=== PATIENT | female | born 1960 | race Caucasian/White ===

== ENCOUNTER 2016-11-02 17:04 | Emergency (ER) | payer BC ==
[2016-11-02] MEDS ORDERED: Ondansetron 4 MG/2 ML SDV IVPUSH ONE (17:44)
[2016-11-02] MEDS ORDERED: HYDROmorphone 0.5 MG/0.5 ML Syringe IVPUSH ONE ×2 (17:44→20:56)
[2016-11-02] MEDS ORDERED: Sodium Chloride 0.9% 500 ML IV ONE (17:44)
--- NOTE | 2016-11-02 17:51 | EDM.PDOC ---
<Sorin Rodgers Yesenia - Last Filed: 11/02/16 19:21> ED HPI GENERAL MEDICAL PROBLEM - General Chief Complaint: Abdominal Pain Stated Complaint: ABDOMINAL PAIN, VOMITTING Time Seen by Provider: 11/02/16 17:15 Source of Information: Reports: Patient, RN Notes Reviewed - History of Present Illness INITIAL COMMENTS - FREE TEXT/NARRATIVE: 56-year-old female comes in with abdominal pain. This started late this past morning about 6 hours ago. She did have some soup for lunch and after that the discomfort became worse. The pain has been mid upper abdomen with cramping. She's had nausea and vomiting. States she feels better for awhile after vomiting , than the pain starts coming back again, at times very intense. She does have history of appendectomy many years ago at 7 years of age and then she states about 10 years later she developed what sounds like bowel obstruction secondary to adhesions requiring additional surgery at that time. She also has had mild cough for the past week or so. She feels like she has had some chills this afternoon but no definite fever. lower mid abdomen/above pubis Pain Score (Numeric/FACES): 1 - Related Data Allergies Allergy/AdvReac Type Severity Reaction Status Date / Time Sulfa (Sulfonamide Allergy Hives Verified 11/02/16 17:16 Antibiotics) Home Meds: Home Meds Aspirin 81 mg PO DAILY 09/01/15 [History] Levothyroxine 125 mcg PO ACBREAKFAST 09/01/15 [History] Hydrochlorothiazide 25 mg PO DAILY 11/02/16 [History] amLODIPine [Norvasc] 0 mg PO DAILY 11/02/16 [History] Past Medical History HEENT History: Reports: Impaired Vision Cardiovascular History: Reports: Hypertension Endocrine/Metabolic History: Reports: Hypothyroidism - Past Surgical History GI Surgical History: Reports: Appendectomy, Other (See Below) Other GI Surgeries/Procedures: surgical removal of abdominal adhesions Social & Family History - Family History Family Medical History: Noncontributory - Tobacco Use Smoking Status *Q: Never Smoker Second Hand Smoke Exposure: No - Caffeine Use Caffeine Use: Reports: Tea - Recreational Drug Use Recreational Drug Use: No - Living Situation & Occupation Living situation: Reports: , with Spouse Occupation: Employed ED ROS GENERAL - Review of Systems Review Of Systems: See Below Constitutional: Reports: Chills. Denies: Fever HEENT: Denies: Throat Pain Respiratory: Reports: Cough (For about a week, mostly nonproductive). Denies: Pleuritic Chest Pain Cardiovascular: Denies: Chest Pain GI/Abdominal: Reports: Abdominal Pain, Nausea, Vomiting. Denies: Diarrhea ( Midabdomen) : Reports: No Symptoms Musculoskeletal: Denies: Back Pain Skin: Reports: No Symptoms Neurological: Reports: No Symptoms ED EXAM, GI/ABD - Physical Exam Exam: See Below General Appearance: Alert, Mild Distress Eyes: Bilateral: Normal Appearance Throat/Mouth: Normal Inspection, Normal Oropharynx Head: Atraumatic Neck: Supple Respiratory/Chest: No Respiratory Distress, Lungs Clear, Normal Breath Sounds Cardiovascular: Regular Rate, Rhythm GI/Abdominal: Tenderness (Mid abdomen), Rebound (Mild), Other (Large scar visible right lower abdomen and large midline vertical scar is well). No: Guarding Back Exam: No: CVA Tenderness (L), CVA Tenderness (R) Extremities: Normal Inspection, Normal Range of Motion Neurological: Alert, No Motor/Sensory Deficits Skin Exam: Warm, Dry, Normal Color Course - Vital Signs Last Recorded V/S: Last Vital Signs Temp 36.7 C 11/02/16 17:10 Pulse 64 11/02/16 17:10 Resp 18 11/02/16 17:10 BP 130/63 11/02/16 17:10 Pulse Ox 99 11/02/16 17:10 - Orders/Labs/Meds Orders: Active Orders 24 hr Category Date Time Status Peripheral IV Care [RC] . DIRECTED Care 11/02/16 17:36 Active Abdomen 2V AP Flat Upright [CR] Stat Exams 11/02/16 17:45 Taken Chest 1V Frontal [CR] Stat Exams 11/02/16 20:56 Ordered Levofloxacin/Dextrose 5%-Water [Levaquin in D5W 500 MG/ Med 11/02/16 21:15 Active 100 ML] 500 mg Premix Bag 1 bag IV ONETIME Sodium Chloride 0.9% [Saline Flush] Med 11/02/16 17:35 Active 10 ml FLUSH ASDIRECTED PRN NG [Nasogastric Orogastric Tube Insertion] [OM.PC] Oth 11/02/16 20:52 Ordered Routine Peripheral IV Insertion Adult [OM.PC] Stat Oth 11/02/16 17:36 Ordered Medication Orders Levofloxacin/Dextrose 500 mg/ (Premix) 100 mls @ 100 mls/hr IV ONETIME ONE Stop: 11/02/16 22:14 Last Admin: 11/02/16 21:30 Dose: 100 mls/hr Sodium Chloride (Saline Flush) 10 ml FLUSH ASDIRECTED PRN PRN Reason: Keep Vein Open Last Admin: 11/02/16 19:45 Dose: 10 ml Admin: 11/02/16 17:53 Dose: 10 ml Labs: Laboratory Tests 11/02/16 11/02/16 11/02/16 Range/Units 17:38 17:38 18:40 WBC 16.35 H (3.98-10.04) K/mm3 RBC 4.89 (3.98-5.22) M/mm3 Hgb 14.9 (11.2-15.7) gm/L Hct 44.4 (34.1-44.9) % MCV 90.8 (79.4-94.8) fl MCH 30.5 (25.6-32.2) pg MCHC 33.6 (32.2-35.5) g/dl RDW Std Deviation 45.1 (36.4-46.3) fL Plt Count 291 (182-369) K/mm3 MPV 10.7 (9.4-12.3) fl Neut % (Auto) 89.9 H (34.0-71.1) % Lymph % (Auto) 6.2 L (19.3-51.7) % [place] % (Auto) 3.2 L (4.7-12.5) % Eos % (Auto) 0.3 L (0.7-5.8) Baso % (Auto) 0.2 (0.1-1.2) % Neut # (Auto) 14.71 H (1.56-6.13) K/mm3 Lymph # (Auto) 1.01 L (1.18-3.74) K/mm3 [place] # (Auto) 0.52 H (0.24-0.36) K/mm3 Eos # (Auto) 0.05 (0.04-0.36) K/mm3 Baso # (Auto) 0.03 (0.01-0.08) K/mm3 Manual Slide Review Normal smear Sodium 141 (136-145) mEq/L Potassium 3.3 L (3.5-5.1) mEq/L Chloride 100 (98-107) mEq/L Carbon Dioxide 32 (21-32) mEq/L Anion Gap 12.3 (5-15) BUN 17 (7-18) mg/dL Creatinine 0.8 (0.55-1.02) mg/dL Est Cr Clr Drug Dosing 67.00 mL/min Estimated GFR (MDRD) > 60 (>60) mL/min BUN/Creatinine Ratio 21.3 H (14-18) Glucose 141 H (74-106) mg/dL Calcium 10.4 H (8.5-10.1) mg/dL Total Bilirubin 1.0 (0.2-1.0) mg/dL AST 30 (15-37) U/L ALT 114 H (14-59) U/L Alkaline Phosphatase 156 H (46-116) U/L Total Protein 9.1 H (6.4-8.2) g/dl Albumin 4.6 (3.4-5.0) g/dl Globulin 4.5 gm/dL Albumin/Globulin Ratio 1.0 (1-2) Urine Color Yellow (Yellow) Urine Appearance Clear (Clear) Urine pH 8.5 H (5.0-8.0) Ur Specific [place] 1.020 (1.005-1.030) Urine Protein 1+ H (Negative) Urine Glucose (UA) Negative (Negative) Urine Ketones Negative (Negative) Urine Occult Blood Negative (Negative) Urine Nitrite Negative (Negative) Urine Bilirubin Negative (Negative) Urine Urobilinogen 0.2 (0.2-1.0) Ur Leukocyte Esterase Negative (Negative) Urine RBC 0-5 (0-5) /hpf Urine WBC 0-5 (0-5) /hpf Ur Epithelial Cells 0-5 (0-5) /hpf Amorphous Sediment Moderate H (NOT SEEN) /hpf Urine Bacteria Few (FEW) /hpf Urine Mucus Few (FEW) /hpf Meds: Medications Generic Name Dose Route Start Last Admin Trade Name Freq PRN Reason Stop Dose Admin Levofloxacin/Dextrose 500 mg/ 100 mls @ 100 mls/hr 11/02/16 21:15 11/02/16 21 :30 Premix IV 11/02/16 22:14 100 mls/hr ONETIME ONE Administration Sodium Chloride 10 ml 11/02/16 17:35 11/02/16 19:45 Saline Flush FLUSH 10 ml ASDIRECTED PRN Administration Keep Vein Open Discontinued Medications Generic Name Dose Route Start Last Admin Trade Name Hema PRN Reason Stop Dose Admin Diatrizoate Meglum/Diatrizoate Sod 90 ml 11/02/16 19:22 11/02/16 19:45 Gastrografin 37% PO 11/02/16 19:23 90 ml ONETIME ONE Administration Hydromorphone HCl 0.5 mg 11/02/16 17:44 11/02/16 17:54 Dilaudid IVPUSH 11/02/16 17:45 0.5 mg ONETIME ONE Administration Hydromorphone HCl 0.5 mg 11/02/16 20:56 11/02/16 21:01 Dilaudid IVPUSH 11/02/16 20:57 0.5 mg ONETIME ONE Administration Sodium Chloride 500 mls @ 999 mls/hr 11/02/16 17:44 11/02/16 17:52 Normal Saline IV 11/02/16 18:14 999 mls/hr .BOLUS ONE Administration Iopamidol 125 ml 11/02/16 19:22 11/02/16 19:45 Isovue-300 (61%) IVPUSH 11/02/16 19:23 125 ml ONETIME ONE Administration Lidocaine HCl 10 ml 11/02/16 20:39 11/02/16 21:25 Xylocaine 2% Jelly MUCMEM 11/02/16 20:40 10 ml ONETIME ONE Administration Lidocaine HCl Confirm 11/02/16 20:41 11/02/16 20:54 Xylocaine 2% Jelly Administered 11/02/16 20:42 Not Given Dose 10 ml .ROUTE .STK-MED ONE Ondansetron HCl 4 mg 11/02/16 17:44 11/02/16 17:52 Zofran IVPUSH 11/02/16 17:45 4 mg ONETIME ONE Administration - Re-Assessments/Exams Free Text/Narrative Re-Assessment/Exam: 11/02/16 18:48. X-rays of the abdomen do show multiple air-fluid levels up her midabdomen. As noted she does have a history of adhesions and small bowel obstruction about 40 years ago which was about 10 years after surgery for appendicitis at age 7. There is strong concern for at least partial small bowel obstruction developing at this time. Have ordered CT of abdomen and pelvis with oral and IV contrast. Approaching change of shift. Will be transferring care to Dr. Galeas who will soon be coming on for the evening or night nurse supervisor. Departure - Departure Disposition: DC/Tfer to [facility] Clinical Impression: Small bowel obstruction due to adhesions, Leukocytosis - Discharge Information Referrals: Valeri Benavides, DO [Primary Care Provider] - - My Orders Last 24 Hours: My Active Orders 11/02/16 20:52 NG [Nasogastric Orogastric Tube Insertion] [OM.PC] Routine 11/02/16 20:56 Chest 1V Frontal [CR] Stat 11/02/16 21:15 Levofloxacin/Dextrose 5%-Water [Levaquin in D5W 500 MG/100 ML] 500 mg Premix Bag 1 bag IV ONETIME - Assessment/Plan Last 24 Hours: My Active Orders 11/02/16 20:52 NG [Nasogastric Orogastric Tube Insertion] [OM.PC] Routine 11/02/16 20:56 Chest 1V Frontal [CR] Stat 11/02/16 21:15 Levofloxacin/Dextrose 5%-Water [Levaquin in D5W 500 MG/100 ML] 500 mg Premix Bag 1 bag IV ONETIME <Louis Galeas - Last Filed: 11/02/16 21:45> Course - Radiology Interpretation Free Text/Narrative:: CT of the abdomen and pelvis with oral and IV contrast is read by Dr. Fitzgerald as: 1. Fluid-filled and mildly dilated small bowel most likely representing small bowel obstruction within the mid to distal small bowel. Etiology is not seen and findings most likely due to adhesions. 2. Large fibroid within the uterus which was noted on pelvic ultrasound of and appears stable. 3. Small hiatal hernia. Portal chest radiograph appears to demonstrate a NG tube to the stomach via the esophagus. Formal read per the Radiologist pending. - Re-Assessments/Exams Free Text/Narrative Re-Assessment/Exam: 11/02/16 21:[address] Lyla Sharma at 20:53. She reviewed the patient's labs , abdominal films, and CT scan. She is concerned about the patient's elevated white blood cell count, and of the patient's CT images. She is recommending that the patient go to the OR tonight, however, no beds are available at this facility, therefore the patient will require transfer to [place]. The above was discussed with the patient and her . The patient is agreeable to transfer. 11/02/16 21:[address] Maria, surgeon at [facility], at 21:20. He accepts the patient for transfer. Images have been pushed, and we will fax the patient's labs. Departure - Departure Time of Disposition: 21:44 Condition: Serious - My Orders Last 24 Hours: My Active Orders 11/02/16 20:52 NG [Nasogastric Orogastric Tube Insertion] [OM.PC] Routine 11/02/16 20:56 Chest 1V Frontal [CR] Stat 11/02/16 21:15 Levofloxacin/Dextrose 5%-Water [Levaquin in D5W 500 MG/100 ML] 500 mg Premix Bag 1 bag IV ONETIME - Assessment/Plan Last 24 Hours: My Active Orders 11/02/16 20:52 NG [Nasogastric Orogastric Tube Insertion] [OM.PC] Routine 11/02/16 20:56 Chest 1V Frontal [CR] Stat 11/02/16 21:15 Levofloxacin/Dextrose 5%-Water [Levaquin in D5W 500 MG/100 ML] 500 mg Premix Bag 1 bag IV ONETIME
[2016-11-02] MEDS: Sodium Chloride 0.9% 10 ML Syringe FLUSH PRN ×2 (17:53→19:45)
[2016-11-02] MEDS ORDERED: Diatrizoate Meglumine/Diatrizoate Sodium 37% 120 ML Bottle PO ONE (19:22)
[2016-11-02] MEDS ORDERED: Iopamidol 612 MG/ML 150 ML Bottle IVPUSH ONE (19:22)
--- NOTE | 2016-11-02 20:07 | CT ---
CT abdomen and pelvis Technique: Multiple axial sections were obtained from above the dome of the diaphragm inferiorly through the pubic symphysis. Intravenous and oral contrast was given. Incomplete bowel opacification is seen within the distal small bowel. Comparison: No previous abdominal CT. Findings: Visualized lung bases shows nothing acute. Liver shows no focal parenchymal abnormality. Spleen appears within normal limits. Adrenal glands show no nodule. Small hiatal hernia is seen. Kidneys show symmetric contrast enhancement without hydronephrosis or mass. Aorta shows no aneurysmal dilatation. No retroperitoneal adenopathy or mesenteric abnormalities are seen. Fluid-filled and mildly dilated small bowel is identified within the upper and mid abdomen. Decompressed small bowel loops are seen within the pelvis. Findings are felt to represent mild small bowel obstruction occurring within the mid to distal small bowel. Large abnormality is seen within the uterus which is felt compatible with large fibroid measuring about 7.8 cm. Bone window settings shows mild scoliosis within the spine as well as scattered degenerative change. Vacuum phenomena is noted within the L5-S1 disc. Impression: 1. Fluid-filled and mildly dilated small bowel most likely representing small bowel obstruction within the mid to distal small bowel. Etiology is not seen and findings most likely due to adhesions. 2. Large fibroid within the uterus which was noted on pelvic ultrasound of 07/07/12 and appears stable. 3. Small hiatal hernia. Diagnostic code #3
[2016-11-02] MEDS ORDERED: Lidocaine 2% Jelly 10 ML Urojet MUCMEM ONE (20:39)
[2016-11-02] MEDS ORDERED: Lidocaine 2% Jelly 10 ML Urojet ONE (20:41)
[2016-11-02] MEDS ORDERED: Levofloxacin/Dextrose 5%-Water 500 MG in Premix Bag 1 BAG IV ONE (21:15)
[2016-11-02 21:47] VITALS: BP 113/63
--- NOTE | 2016-11-03 07:49 | CR ---
Chest: Portable view of the chest was obtained. Comparison: No previous study. Contrast is seen within the collecting systems of both kidneys from recent CT exam. Heart size and mediastinum are within normal limits. Lungs are clear with no acute infiltrates. Scoliosis is again seen within the spine. Impression: 1. Incidental findings. Nothing acute is identified on portable chest x-ray. Diagnostic code #2
--- NOTE | 2016-11-03 07:50 | CR ---
Abdomen: Supine and upright views of the abdomen were obtained. Comparison: No previous abdominal x-ray. Mild scoliosis is seen. Slightly prominent small bowel gas is noted with several air-fluid levels. Minimal small bowel obstruction is possible. No free air is seen. No abnormal calcification is seen. Soft tissue fullness within the pelvis is seen which correlates to a large uterine fibroid. Impression: 1. Slightly prominent small bowel gas. 2. Soft tissue prominence within the pelvis compatible with uterine fibroid. 3. Other incidental findings. Diagnostic code #3
== END 2016-11-02 22:03 ==
LOC: JD.ED 17:04
DX: K66.0 Peritoneal adhesions (postprocedural) (postinfection) (principal); D72.829 Elevated white blood cell count, unspecified; I10 Essential (primary) hypertension; E03.9 Hypothyroidism, unspecified; Z90.49 Acquired absence of other specified parts of digestive tract; Z88.2 Allergy status to sulfonamides; Z79.82 Long term (current) use of aspirin
CPT/HCPCS: 36415; 71010; 74020; 74177; 80053; 81001; 85025; 96361; 96365; 96375; 96376; 99285; J1170; J1956; J2405; J7040; J7050; Q9963; Q9967; 99284

== ENCOUNTER 2016-12-02 15:01 | Inpatient (IN) | payer BC ==
[2016-12-02] MEDS ORDERED: Sodium Chloride 0.9% 1,000 ML IV ONE (16:18)
[2016-12-02] MEDS ORDERED: Ketorolac 30 MG/ML SDV IVPUSH ONE (16:18)
[2016-12-02] MEDS ORDERED: Ondansetron 4 MG/2 ML SDV IVPUSH ONE (16:18)
--- NOTE | 2016-12-02 16:20 | EDM.PDOC ---
<Rosanne Rodgers Monika - Last Filed: 12/02/16 17:48> ED HPI GENERAL MEDICAL PROBLEM - General Chief Complaint: Abdominal Pain Stated Complaint: BOWEL OBSTRUCTION Time Seen by Provider: 12/02/16 15:29 Source of Information: Reports: Patient History Limitations: Reports: No Limitations - History of Present Illness INITIAL COMMENTS - FREE TEXT/NARRATIVE: The patient is a 56-year-old female with a history of prior bowel obstructions requiring operative intervention who comes in with abdominal pain. She states that it feels like she is getting obstruction. She was hospitalized in October at an outside hospital with an obstruction that resolved without surgical intervention. States that since then she had been doing well until today. She ate lunch and after lunch started having abdominal pain. The pain is crampy. Diffuse. Comes in waves. Lasts units and then resolves. No vomiting but she feels nauseated. So far she's been able to drink liquids and keep them down. Last bowel movement was a small bowel movement this morning. She does feel like she is continuing to pass gas. No fever. No additional complaint. No chest pain or shortness of breath. Middle Abdomen Pain Score (Numeric/FACES): 3 - Related Data Allergies Allergy/AdvReac Type Severity Reaction Status Date / Time Sulfa (Sulfonamide Allergy Hives Verified 11/02/16 17:16 Antibiotics) Home Meds: Home Meds Aspirin 81 mg PO DAILY 09/01/15 [History] Levothyroxine 125 mcg PO ACBREAKFAST 09/01/15 [History] Hydrochlorothiazide 25 mg PO DAILY 11/02/16 [History] amLODIPine [Norvasc] 0 mg PO DAILY 11/02/16 [History] Past Medical History HEENT History: Reports: Impaired Vision Cardiovascular History: Reports: Hypertension Endocrine/Metabolic History: Reports: Hypothyroidism - Past Surgical History GI Surgical History: Reports: Appendectomy, Other (See Below) Other GI Surgeries/Procedures: surgical removal of abdominal adhesions Social & Family History - Family History Family Medical History: Noncontributory - Tobacco Use Smoking Status *Q: Never Smoker Second Hand Smoke Exposure: No - Caffeine Use Caffeine Use: Reports: Tea - Recreational Drug Use Recreational Drug Use: No - Living Situation & Occupation Living situation: Reports: , with Spouse Occupation: Employed ED ROS GENERAL - Review of Systems Review Of Systems: See Below Constitutional: Denies: Fever Respiratory: Denies: Cough Cardiovascular: Denies: Chest Pain GI/Abdominal: Reports: Abdominal Pain, Nausea. Denies: Vomiting : Reports: No Symptoms Musculoskeletal: Reports: No Symptoms ED EXAM, GI/ABD - Physical Exam Exam: See Below Exam Limited By: No Limitations General Appearance: Alert, WD/WN, No Apparent Distress Ears: Normal External Exam Nose: Normal Inspection Throat/Mouth: Normal Inspection, Normal Voice Head: Atraumatic, Normocephalic Neck: Normal Inspection, Supple, Non-Tender, Full Range of Motion Respiratory/Chest: No Respiratory Distress, Lungs Clear, Normal Breath Sounds, Chest Non-Tender Cardiovascular: Normal Peripheral Pulses, Regular Rate, Rhythm, No Murmur GI/Abdominal Exam: Normal Bowel Sounds, Soft, No Distention, Other (diffusely TTP). No: Rebound Neurological: Alert, Oriented Psychiatric: Normal Affect, Normal Mood Skin Exam: Warm, Dry, Intact, Normal Color, No Rash Course - Vital Signs Last Recorded V/S: Last Vital Signs Temp 36.2 C 12/02/16 15:09 Pulse 63 12/02/16 15:09 Resp 18 12/02/16 15:09 BP 114/66 12/02/16 15:09 Pulse Ox 99 12/02/16 15:09 - Orders/Labs/Meds Orders: Active Orders 24 hr Category Date Time Status Abdomen Ltd [US] Stat Exams 12/02/16 17:47 Taken Abdomen Pelvis w Cont [CT] Stat Exams 12/02/16 20:38 Taken CULTURE URINE [RM] Stat Lab 12/02/16 17:00 Received Sodium Chloride 0.9% [Normal Saline] 1,000 ml Med 12/02/16 20:45 Active IV ASDIRECTED Medication Orders Sodium Chloride (Normal Saline) 1,000 mls @ 150 mls/hr IV ASDIRECTED ANDREA Last Admin: 12/02/16 20:48 Dose: 150 mls/hr Labs: Laboratory Tests 12/02/16 12/02/16 12/02/16 Range/Units 17:00 17:00 17:00 WBC 14.36 H (3.98-10.04) K/mm3 RBC 4.83 (3.98-5.22) M/mm3 Hgb 15.0 (11.2-15.7) gm/L Hct 43.9 (34.1-44.9) % MCV 90.9 (79.4-94.8) fl MCH 31.1 (25.6-32.2) pg MCHC 34.2 (32.2-35.5) g/dl RDW Std Deviation 46.1 (36.4-46.3) fL Plt Count 275 (182-369) K/mm3 MPV 10.8 (9.4-12.3) fl Neut % (Auto) 87.6 H (34.0-71.1) % Lymph % (Auto) 7.2 L (19.3-51.7) % [place] % (Auto) 4.2 L (4.7-12.5) % Eos % (Auto) 0.5 L (0.7-5.8) Baso % (Auto) 0.3 (0.1-1.2) % Neut # (Auto) 12.57 H (1.56-6.13) K/mm3 Lymph # (Auto) 1.04 L (1.18-3.74) K/mm3 [place] # (Auto) 0.61 H (0.24-0.36) K/mm3 Eos # (Auto) 0.07 (0.04-0.36) K/mm3 Baso # (Auto) 0.04 (0.01-0.08) K/mm3 Manual Slide Review Normal smear Sodium 140 (136-145) mEq/L Potassium 3.3 L (3.5-5.1) mEq/L Chloride 100 (98-107) mEq/L Carbon Dioxide 31 (21-32) mEq/L Anion Gap 12.3 (5-15) BUN 17 (7-18) mg/dL Creatinine 0.8 (0.55-1.02) mg/dL Est Cr Clr Drug Dosing TNP Estimated GFR (MDRD) > 60 (>60) mL/min BUN/Creatinine Ratio 21.3 H (14-18) Glucose 117 H (74-106) mg/dL Calcium 10.2 H (8.5-10.1) mg/dL Total Bilirubin 1.8 H (0.2-1.0) mg/dL AST 32 (15-37) U/L ALT 80 H (14-59) U/L Alkaline Phosphatase 105 (46-116) U/L Total Protein 9.0 H (6.4-8.2) g/dl Albumin 4.8 (3.4-5.0) g/dl Globulin 4.2 gm/dL Albumin/Globulin Ratio 1.1 (1-2) Lipase 155 (73-393) U/L Urine Color Yellow (Yellow) Urine Appearance Clear (Clear) Urine pH 7.5 (5.0-8.0) Ur Specific [place] 1.020 (1.005-1.030) Urine Protein Trace H (Negative) Urine Glucose (UA) Negative (Negative) Urine Ketones 1+ H (Negative) Urine Occult Blood Trace-intact H (Negative) Urine Nitrite Negative (Negative) Urine Bilirubin Negative (Negative) Urine Urobilinogen 0.2 (0.2-1.0) Ur Leukocyte Esterase 1+ H (Negative) Urine RBC 0-5 (0-5) /hpf Urine WBC 5-10 H (0-5) /hpf Ur Epithelial Cells 5-10 H (0-5) /hpf Urine Bacteria Moderate H (FEW) /hpf Urine Mucus Few (FEW) /hpf Meds: Medications Generic Name Dose Route Start Last Admin Trade Name Freq PRN Reason Stop Dose Admin Sodium Chloride 1,000 mls @ 150 mls/hr 12/02/16 20:45 12/02/16 20:48 Normal Saline IV 150 mls/hr ASDIRECTED ANDREA Administration Discontinued Medications Generic Name Dose Route Start Last Admin Trade Name Freq PRN Reason Stop Dose Admin Diatrizoate Meglum/Diatrizoate Sod 90 ml 12/02/16 22:44 12/02/16 22:45 Gastrografin 37% PO 12/02/16 22:45 90 ml ONETIME ONE Administration Sodium Chloride 1,000 mls @ 1,000 mls/hr 12/02/16 16:18 12/02/16 16:59 Normal Saline IV 12/02/16 17:17 1,000 mls/hr ONETIME ONE Administration Iopamidol 150 ml 12/02/16 22:44 12/02/16 22:45 Isovue-300 (61%) IVPUSH 12/02/16 22:45 120 ml ONETIME ONE Administration Ketorolac Tromethamine 30 mg 12/02/16 16:18 12/02/16 17:01 Toradol IVPUSH 12/02/16 16:19 30 mg ONETIME ONE Administration Ondansetron HCl 4 mg 12/02/16 16:18 12/02/16 17:00 Zofran IVPUSH 12/02/16 16:19 4 mg ONETIME ONE Administration - Re-Assessments/Exams Free Text/Narrative Re-Assessment/Exam: 12/02/16 17:48 Lab significant for elevated white count with left shift and mildly elevated bilirubin. Her abdominal series shows no evidence of acute obstruction. I suspect that this may actually be biliary colic with possible cholecystitis. Ultrasound ordered. Departure - Departure Disposition: Home, Self-Care 01 Clinical Impression: Ileus - Discharge Information - My Orders Last 24 Hours: My Active Orders 12/02/16 17:00 CULTURE URINE [RM] Stat 12/02/16 20:38 Abdomen Pelvis w Cont [CT] Stat 12/02/16 20:45 Sodium Chloride 0.9% [Normal Saline] 1,000 ml IV ASDIRECTED - Assessment/Plan Last 24 Hours: My Active Orders 12/02/16 17:00 CULTURE URINE [RM] Stat 12/02/16 20:38 Abdomen Pelvis w Cont [CT] Stat 12/02/16 20:45 Sodium Chloride 0.9% [Normal Saline] 1,000 ml IV ASDIRECTED <Lousi Galeas - Last Filed: 12/03/16 00:10> Course - Re-Assessments/Exams Free Text/Narrative Re-Assessment/Exam: 12/02/16 20:[address] Anjelica Rodgers, and care of the patient assumed. Ultrasound of the right upper quadrant is read by [facility] as: 1: Diffuse fatty infiltration of the liver. 2. Normal gallbladder. I will order a CT scan of the abdomen and pelvis to further evaluate the cause of the patient's pain. The patient's urinalysis appears to be consistent with contamination, however, I will order a urine culture. 12/02/16 23:54 CT of the abdomen and pelvis with IV contrast is read by [facility] as: 1. Enlarged uterus containing a uterine fibroid about 6.8 cm in diameter. 2. Gastrectasis and possible gastroparesis. 3. Nonspecific fluid in the small bowel and colon perhaps due to generalized ileus. 12/03/16 00:08 Test results discussed with the patient and her . Today's workup indicates that the patient is suffering from generalized ileus, although no small bowel obstruction, specifically, was found. I am reluctant to discharge the patient home. I would prefer to have her admitted and try pro-motility agents, such as Reglan and/or erythromycin. The patient is agreeable to being admitted. Case discussed with Dr. Rolle at 00:05. He agrees to the admission. Departure - Departure Time of Disposition: 00:09 Condition: Fair - My Orders Last 24 Hours: My Active Orders 12/02/16 17:00 CULTURE URINE [RM] Stat 12/02/16 20:38 Abdomen Pelvis w Cont [CT] Stat 12/02/16 20:45 Sodium Chloride 0.9% [Normal Saline] 1,000 ml IV ASDIRECTED - Assessment/Plan Last 24 Hours: My Active Orders 12/02/16 17:00 CULTURE URINE [RM] Stat 12/02/16 20:38 Abdomen Pelvis w Cont [CT] Stat 12/02/16 20:45 Sodium Chloride 0.9% [Normal Saline] 1,000 ml IV ASDIRECTED
--- NOTE | 2016-12-02 17:15 | CR ---
Abdominal series: Supine and upright views of the abdomen were obtained as well as frontal view of the chest. Comparison: Previous abdominal x-ray of 11/02/16 and chest x-ray of 11/02/16. Heart size and mediastinum are within normal limits. Lungs are clear. Scoliosis is present within the thoracic and lumbar spine. Bowel gas pattern appears within normal limits. No free air is seen. Several air-fluid levels are seen on the upright view felt to be within normal limits. Impression: 1. Incidental findings. Diagnostic code #2
[2016-12-02] MEDS: Sodium Chloride 0.9% 1,000 ML IV SCH (20:48)
[2016-12-02] MEDS ORDERED: Iopamidol 612 MG/ML 150 ML Bottle IVPUSH ONE (22:44)
[2016-12-02] MEDS ORDERED: Diatrizoate Meglumine/Diatrizoate Sodium 37% 120 ML Bottle PO ONE (22:44)
[2016-12-03] MEDS ORDERED: Metoprolol Tartrate 5 MG/5 ML SDV IVPUSH PRN (00:24)
[2016-12-03] MEDS ORDERED: hydrALAZINE 20 MG/ML SDV IVPUSH PRN (00:24)
[2016-12-03] MEDS ORDERED: Acetaminophen/HYDROcodone 325-5 MG Tab PO PRN (00:25)
[2016-12-03] MEDS ORDERED: Ondansetron 4 MG/2 ML SDV IV PRN (00:25)
[2016-12-03] MEDS ORDERED: Temazepam 15 MG Cap PO PRN (00:25)
[2016-12-03] MEDS ORDERED: LORazepam 2 MG/ML MDV IV PRN (00:25)
[2016-12-03] MEDS ORDERED: Acetaminophen 325 MG Tab PO PRN (00:25)
[2016-12-03] MEDS ORDERED: Promethazine 12.5 MG in Sodium Chloride 0.9% 50 ML IV PRN (00:25)
[2016-12-03] MEDS ORDERED: HYDROmorphone 1 MG/ML Syringe IVPUSH PRN (00:25)
[2016-12-03] MEDS ORDERED: Albuterol/Ipratropium 3.0-0.5 MG/3 ML Neb Soln NEB PRN (00:25)
--- NOTE | 2016-12-03 00:30 | PCM.HP ---
H&P History of Present Illness - General Date of Service: 12/03/16 Admit Problem/Dx: Abdominal Pain Source of Information: Patient, Family, Old Records, Provider, RN Notes Reviewed , Significant Other History Limitations: Reports: No Limitations - History of Present Illness Initial Comments - Free Text/Narative: This is a 56 year old white female with past medical history of hypothyroidism and hypertension who comes in the emergency department with complaints of abdominal pain. Her symptom started after she ate lunch. She describes her pain as crampy, diffuse and comes in waves. Patient feels nauseated but without emesis. Her last bowel movement was this morning. She denies any signs of systemic infections. Patient carries a history of bowel instruction requiring operative intervention. She has had removal of some of her abdominal adhesions as well as history of appendectomy. Last time she this episode was in October and she improved medically without surgical intervention. Her initial workup in emergency department shows a CBC remarkable for WBC of 14.36, and neutrophils of 87.6%. Her chemistry is remarkable for potassium of 3.3, glucose of 117, calcium of 10.2, total bilirubin of 1.8, ALT of 80, and total protein of 9. Her UA is unimpressive for urinary tract infection. Abdominal x-ray report reads bowel gas pattern appears within normal limits. No free air seen. Abdominal ultrasound report reads fatty infiltration within the liver. No additional abnormalities identified in the right upper quadrant. Abdominal/Pelvis CT scan report reads fluid within the colon. Slightly dilated stomach containing contrast: Incidental versus gastroparesis. Nothing acute appreciated. Patient was to be admitted for abdominal pain felt to be related to above findings. Middle Abdomen Pain Score (Numeric/FACES): 3 - Related Data Allergies/Adverse Reactions: Allergies Allergy/AdvReac Type Severity Reaction Status Date / Time Sulfa (Sulfonamide Allergy Hives Verified 12/03/16 01:25 Antibiotics) Home Medications: Home Meds Aspirin 81 mg PO DAILY 09/01/15 [History] Levothyroxine 125 mcg PO ACBREAKFAST 09/01/15 [History] Hydrochlorothiazide 25 mg PO DAILY 11/02/16 [History] amLODIPine [Norvasc] 0 mg PO DAILY 11/02/16 [History] Past Medical History HEENT History: Reports: Impaired Vision Cardiovascular History: Reports: Hypertension Endocrine/Metabolic History: Reports: Hypothyroidism - Past Surgical History GI Surgical History: Reports: Appendectomy, Other (See Below) Other GI Surgeries/Procedures: surgical removal of abdominal adhesions Social & Family History - Family History Family Medical History: Noncontributory - Tobacco Use Smoking Status *Q: Never Smoker Second Hand Smoke Exposure: No - Caffeine Use Caffeine Use: Reports: Tea - Recreational Drug Use Recreational Drug Use: No - Living Situation & Occupation Living situation: Reports: , with Spouse Occupation: Employed H&P Review of Systems - Review of Systems: Review Of Systems: See Below General: Reports: Fever. Denies: Chills, Malaise, Weakness, Fatigue, Decreased Appetite HEENT: Reports: No Symptoms Pulmonary: Reports: Cough. Denies: Shortness of Breath Cardiovascular: Denies: Chest Pain, Palpitations, Dyspnea on Exertion Gastrointestinal: Reports: Abdominal Pain, Flatus, Nausea. Denies: Constipation , Decreased Appetite, Difficulty Swallowing, Distension, Hematemesis, Hematochezia, Melena, Vomiting Genitourinary: Reports: No Symptoms Musculoskeletal: Reports: No Symptoms Skin: Denies: Cyanosis, Jaundice, Rash, Erythema Psychiatric: Denies: Depression, Anxiety, Hallucinations, Suicidal Ideation Neurological: Denies: Confusion, Difficulty Walking, Weakness, Gait Disturbance Hematologic/Lymphatic: Reports: No Symptoms Immunologic: Reports: No Symptoms Exam - Exam Exam: See Below - Vital Signs Vital Signs: Last Vital Signs Temp 36.2 C 12/02/16 15:09 Pulse 63 12/02/16 15:09 Resp 18 12/02/16 15:09 BP 114/66 12/02/16 15:09 Pulse Ox 99 12/02/16 15:09 Weight: 65.771 kg - Exam General: Alert, Oriented, Cooperative, Mild Distress HEENT: Conjunctiva Clear, EACs Clear, EOMI, Hearing Intact, Mucosa Moist & [place] , Nares Patent, Normal Nasal Septum, Posterior Pharynx Clear, Pupils Equal, Pupils Reactive Neck: Supple, Trachea Midline, +2 Carotid Pulse wo Bruit Lungs: Clear to Auscultation, Normal Respiratory Effort Cardiovascular: Regular Rate, Regular Rhythm GI/Abdominal Exam: Normal Bowel Sounds, Soft, Tender (mid abdomen), Other (Scars : Mid-abdomen and Diagonal scar on the lower right ). No: No Organomegaly, No Distention, No Abnormal Bruit, No Mass (Female) Exam: Normal External Exam, Deferred Rectal (Female) Exam: Deferred Back Exam: Normal Inspection, Decreased Range of Motion Extremities: Normal Inspection, Normal Range of Motion, Non-Tender, No Pedal Edema, Normal Capillary Refill Skin: Warm, Dry, Intact Neuro Extensive - Mental Status: Oriented x3, Normal Cognition, Memory Intact Neuro Extensive - Motor, Sensory, Reflexes: CN II-XII Intact, Normal Gait Psychiatric: Alert, Normal Affect, Normal Mood - Patient Data Result Diagrams: 12/03/16 06:15 12/03/16 06:15 *Q Meaningful Use (ADM) - VTE *Q VTE Criteria *Q: - Stroke *Q Stroke Criteria *Q: - AMI *Q AMI Criteria *Q: Problem List Initiated/Reviewed/Updated: Yes Orders Last 24hrs: Active Orders 24 hr Category Date Time Status Antiembolic Devices [RC] PER UNIT ROUTINE Care 12/03/16 00:26 Ordered Height and Weight [RC] DAILY Care 12/03/16 00:25 Ordered Intake and Output [RC] QSHIFT Care 12/03/16 00:25 Ordered Oxygen Therapy [RC] PRN Care 12/03/16 00:25 Ordered RT Aerosol Therapy [RC] ASDIRECTED Care 12/03/16 00:26 Ordered Up With Assistance [RC] ASDIRECTED Care 12/03/16 00:25 Ordered Up ad Maral [RC] ASDIRECTED Care 12/03/16 00:25 Ordered VTE/DVT Education [RC] PER UNIT ROUTINE Care 12/03/16 00:25 Ordered Vital Signs [RC] Q4H Care 12/03/16 00:25 Ordered Consult to Case Management [CONS] Routine Cons 12/03/16 00:27 Ordered Consult to Fixed Income Director [CONS] Routine Cons 12/03/16 00:27 Ordered OT Evaluation and Treatment [CONS] Routine Cons 12/03/16 00:27 Ordered PT Evaluation and Treatment [CONS] Routine Cons 12/03/16 00:27 Ordered Nothing per Oral Now Diet [DIET] Diet 12/03/16 Breakfast Ordered Abdomen 1V Flat [CR] Routine Exams 12/03/16 09:00 Ordered BASIC METABOLIC PANEL,BMP [CHEM] AM Lab 12/03/16 05:11 Ordered BASIC METABOLIC PANEL,BMP [CHEM] AM Lab 12/04/16 05:11 Ordered BASIC METABOLIC PANEL,BMP [CHEM] AM Lab 12/05/16 05:11 Ordered C-REACTIVE PROTEIN [CHEM] AM Lab 12/03/16 05:11 Ordered C-REACTIVE PROTEIN [CHEM] AM Lab 12/04/16 05:11 Ordered C-REACTIVE PROTEIN [CHEM] AM Lab 12/05/16 05:11 Ordered CBC WITH AUTO DIFF [HEME] AM Lab 12/03/16 05:11 Ordered CBC WITH AUTO DIFF [HEME] AM Lab 12/04/16 05:11 Ordered CBC WITH AUTO DIFF [HEME] AM Lab 12/05/16 05:11 Ordered MAGNESIUM [CHEM] AM Lab 12/03/16 05:11 Ordered MAGNESIUM [CHEM] AM Lab 12/04/16 05:11 Ordered MAGNESIUM [CHEM] AM Lab 12/05/16 05:11 Ordered Acetaminophen [Tylenol] Med 12/03/16 00:25 Ordered 650 mg PO Q4H PRN Acetaminophen/HYDROcodone [[place] 325-5 MG] Med 12/03/16 00:25 Ordered 1 tab PO Q4H PRN Albuterol/Ipratropium [DuoNeb 3.0-0.5 MG/3 ML] Med 12/03/16 00:25 Ordered 3 ml NEB Q4H PRN HYDROmorphone [Dilaudid] Med 12/03/16 00:25 Ordered 1 mg IVPUSH Q3H PRN Hydrochlorothiazide Med 12/03/16 09:00 Ordered 25 mg PO DAILY LORazepam [Ativan] Med 12/03/16 00:25 Ordered 1 mg IV Q6H PRN Levothyroxine Med 12/03/16 06:00 Ordered 125 mcg PO ACBREAKFAST Magnesium Rep Pharmacy to Dose [Pharmacy to Dose - Med 12/03/16 00:30 Ordered Magnesium Replacement] 1 dose .XX ASDIRECTED Metoclopramide [Reglan] Med 12/03/16 00:30 Ordered 10 mg IVPUSH Q6H Metoprolol Tartrate [Lopressor] Med 12/03/16 00:24 Ordered 5 mg IVPUSH Q4H PRN Ondansetron [Zofran] Med 12/03/16 00:25 Ordered 4 mg IV Q6H PRN Potassium Rep Pharmacy to Dose [Pharmacy to Dose - Med 12/03/16 00:30 Ordered Potassium Replacement] 1 dose .XX ASDIRECTED Promethazine [Phenergan] 12.5 mg Med 12/03/16 00:25 Ordered Sodium Chloride 0.9% [Normal Saline] 50 ml IV Q6H Temazepam [Restoril] Med 12/03/16 00:25 Ordered 15 mg PO BEDTIME PRN amLODIPine [Norvasc] Med 12/03/16 09:00 Ordered 5 mg PO DAILY hydrALAZINE [Apresoline] Med 12/03/16 00:24 Ordered 20 mg IVPUSH Q4H PRN Sequential Compression Device [OM.PC] Per Unit Routine Oth 12/03/16 00:25 Ordered Resuscitation Status Routine Resus Stat 12/03/16 00:25 Ordered Medication Orders Sodium Chloride (Normal Saline) 1,000 mls @ 150 mls/hr IV ASDIRECTED ANDREA Last Admin: 12/02/16 20:48 Dose: 150 mls/hr Assessment/Plan Comment:: Assessment/Plan: Acute: Abdominal Pain - Likely 2/2 Below - Supportive Care - Pain Management Generalized Ileus - CT scan: Nonspecific fluid in the small bowel and colon perhaps due to generalized ileus. - Supportive Care - IV fluids - Prokinetic Agent - Ambulated as tolerated - Repeat AXR in am Gastrectasis and Possible Gastroparesis - CT scan findings - Prokinetic Agent Diffuse Fatty Liver Disease - U/S Finding - Low chol diet - Dietary consult Uterine Fibroids - CT scan V-rad: Enlarged uterus containing a uterine fibroid about 6.8 cm in diameter - May need Benzene Operator eval after discharge Chronic: HTN Hypothyrodisim Plan: Admit to Med-Surg NPO except ice chips/sips of water Routine AM Labs Resume Home Medications Consider GS consult for worsening of symptoms PT/OT consult if needed SW/CM for d/c planning Code status: 1
[2016-12-03] MEDS ORDERED: Metoclopramide 10 MG/2 ML SDV IVPUSH ONE (00:45)
[2016-12-03] MEDS: Potassium Chloride 20 MEQ Tab.ER PO SCH ×2 (01:33→05:46)
[2016-12-03] MEDS: Sodium Chloride 0.9% 1,000 ML IV SCH ×3 (03:59→17:50)
[2016-12-03] MEDS: Metoclopramide 10 MG/2 ML SDV IVPUSH SCH ×3 (05:46→17:04)
[2016-12-03] MEDS ORDERED: Levothyroxine 125 MCG Tab PO SCH (06:00)
--- NOTE | 2016-12-03 07:17 | US ---
Limited abdominal ultrasound: Multiple real-time images were obtained of the right upper abdomen. Comparison: Previous abdominal ultrasound of 11/10/11. Liver is minimally echogenic in relation to the kidney suspicious for fatty infiltration. No focal abnormality is identified within the liver. Gallbladder shows no gallstones. No gallbladder wall thickening or biliary duct dilatation is seen. Right kidney shows no hydronephrosis or mass. Pancreas is within normal limits. Inferior vena cava and portal vein are patent. Impression: 1. Fatty infiltration within the liver. 2. No additional abnormality is identified on right upper quadrant abdominal ultrasound. Diagnostic code #2 I agree with preliminary report issued by [facility] ([facility] report finalized on 12/02/16, 90 1 PM Central Time)
--- NOTE | 2016-12-03 07:44 | CT ---
CT abdomen and pelvis Technique: Multiple axial sections were obtained from above the dome of the diaphragm inferiorly through the pubic symphysis. Intravenous and oral contrast was utilized. Delayed images were also obtained through the pelvis. Comparison: Previous abdominal ultrasound performed earlier on the same date and previous CT exam of 11/02/16. Findings: Visualized lung bases show nothing acute. Liver shows mild fatty infiltration. No focal abnormality seen within the liver. Spleen appears within normal limits. Slightly dilated stomach is seen. Adrenal glands show no nodule. Pancreas is within normal limits. Kidneys show symmetric contrast enhancement. Slightly prominent collecting system noted of the left kidney which is seen on prior CT exam and appears stable. Aorta shows no aneurysmal dilatation. No retroperitoneal adenopathy or mesenteric abnormalities are seen. Large uterine fibroid is seen measuring approximately 7.7 cm in size which is stable from prior exam. No additional pelvic abnormality is appreciated. Fluid is seen within portions of the colon. Minimal free fluid seen within the pelvis which is felt to be physiologic. No inflammatory change is seen. Several loops of distal small bowel are mildly prominent in size possibly related to the hypertonic effect of contrast versus change from mild gastroenteritis. Delayed images show contrast within the distal ureters and bladder. Bone window settings were reviewed showing degenerative change within the spine most prominent at L5-S1 with disc space narrowing and vacuum phenomena. Mild scoliosis is seen. Impression: 1. Fluid within the colon. Slightly prominent size of distal small bowel. Please correlate if patient has any symptoms of gastroenteritis with diarrhea. Slightly dilated stomach containing contrast. This is nonspecific and may be incidental versus an element of gastroparesis. 2. Other incidental findings as noted above which are stable from prior CT exam. 3. Nothing acute is appreciated. Diagnostic code #3
[2016-12-03] MEDS: amLODIPine 5 MG Tab PO SCH (08:59)
[2016-12-03] MEDS: Hydrochlorothiazide 25 MG Tab PO SCH (09:00)
--- NOTE | 2016-12-03 11:01 | CR ---
Abdomen: Supine view of the abdomen was obtained. Comparison: Previous abdominal CT exam of 12/02/16 and abdominal x-ray of 12/02/16. Contrast noted within the colon from recent CT study. Scoliosis and mild degenerative change is seen within the spine. No abnormal calcifications are seen. No bowel dilatation is seen. Impression: 1. Incidental findings. Diagnostic code #1
--- NOTE | 2016-12-03 11:35 | PCM.PN ---
- General Info Date of Service: 12/03/16 Functional Status: Reports: Pain Controlled, Ambulating, Urinating - Review of Systems General: Reports: No Symptoms HEENT: Reports: No Symptoms Pulmonary: Reports: No Symptoms Cardiovascular: Reports: No Symptoms Gastrointestinal: Reports: No Symptoms Genitourinary: Reports: No Symptoms Musculoskeletal: Reports: No Symptoms Skin: Reports: No Symptoms Neurological: Reports: No Symptoms Psychiatric: Reports: No Symptoms - Patient Data Vitals - most recent: Last Vital Signs Temp 36.4 C 12/03/16 08:50 Pulse 69 12/03/16 08:50 Resp 14 12/03/16 08:50 BP 120/62 12/03/16 08:59 Pulse Ox 94 L 12/03/16 08:50 Weight - most recent: 65.771 kg I&O - last 24 hours: Intake & Output 12/02/16 12/03/16 12/03/16 22:59 06:59 14:59 Intake Total 900 Output Total 550 Balance 350 Lab Results last 24 hrs: Laboratory Results - last 24 hr 12/03/16 12/03/16 Range/Units 06:15 06:15 WBC 8.92 (3.98-10.04) K/mm3 RBC 3.96 L (3.98-5.22) M/mm3 Hgb 12.1 (11.2-15.7) gm/L Hct 36.4 (34.1-44.9) % MCV 91.9 (79.4-94.8) fl MCH 30.6 (25.6-32.2) pg MCHC 33.2 (32.2-35.5) g/dl RDW Std Deviation 46.4 H (36.4-46.3) fL Plt Count 237 (182-369) K/mm3 MPV 11.0 (9.4-12.3) fl Neut % (Auto) 78.2 H (34.0-71.1) % Lymph % (Auto) 12.1 L (19.3-51.7) % George % (Auto) 7.8 (4.7-12.5) % Eos % (Auto) 1.8 (0.7-5.8) Baso % (Auto) 0.1 (0.1-1.2) % Neut # (Auto) 6.97 H (1.56-6.13) K/mm3 Lymph # (Auto) 1.08 L (1.18-3.74) K/mm3 George # (Auto) 0.70 H (0.24-0.36) K/mm3 Eos # (Auto) 0.16 (0.04-0.36) K/mm3 Baso # (Auto) 0.01 (0.01-0.08) K/mm3 Sodium 142 (136-145) mEq/L Potassium 3.6 (3.5-5.1) mEq/L Chloride 109 H (98-107) mEq/L Carbon Dioxide 27 (21-32) mEq/L Anion Gap 9.6 (5-15) BUN 12 (7-18) mg/dL Creatinine 0.7 (0.55-1.02) mg/dL Est Cr Clr Drug Dosing 76.57 mL/min Estimated GFR (MDRD) > 60 (>60) mL/min BUN/Creatinine Ratio 17.1 (14-18) Glucose 104 (74-106) mg/dL Calcium 8.4 L (8.5-10.1) mg/dL Magnesium 2.0 (1.8-2.4) mg/dl C-Reactive Protein 0.8 (<1.0) mg/dL Med Orders - Current: Current Medications Acetaminophen (Tylenol) 650 mg PO Q4H PRN PRN Reason: Pain (Mild 1-3)/fever Hydrocodone Bitart/Acetaminophen ([place] 325-5 Mg) 1 tab PO Q4H PRN PRN Reason: Pain (moderate 4-6) Albuterol/Ipratropium (Duoneb 3.0-0.5 Mg/3 Ml) 3 ml NEB Q4H PRN PRN Reason: Shortness Of Breath/wheezing Amlodipine Besylate (Norvasc) 5 mg PO DAILY [facility] Last Admin: 12/03/16 08:59 Dose: 5 mg Hydralazine HCl (Apresoline) 20 mg IVPUSH Q4H PRN PRN Reason: Hypertension Hydrochlorothiazide (Hydrochlorothiazide) 25 mg PO DAILY [facility] Last Admin: 12/03/16 09:00 Dose: 25 mg Hydromorphone HCl (Dilaudid) 1 mg IVPUSH Q3H PRN PRN Reason: Other Sodium Chloride (Normal Saline) 1,000 mls @ 150 mls/hr IV ASDIRECTED [facility] Last Admin: 12/03/16 10:45 Dose: 150 mls/hr Promethazine HCl 12.5 mg/ (Sodium Chloride) 50.5 mls @ 100 mls/hr IV Q6H PRN PRN Reason: Nausea/Vomiting Levothyroxine Sodium (Synthroid) 50 mcg PO ACBREAKFAST ANDREA Lorazepam (Ativan) 1 mg IV Q6H PRN PRN Reason: Anxiety Magnesium Sulfate (Pharmacy To Dose - Magnesium Replacement) 0 dose .XX ASDIRECTED PRN PRN Reason: RX TO MONITOR MAG LEVELS Metoclopramide HCl (Reglan) 10 mg IVPUSH Q6H [facility] Last Admin: 12/03/16 11:21 Dose: 10 mg Metoprolol Tartrate (Lopressor) 5 mg IVPUSH Q4H PRN PRN Reason: Tachycardia Ondansetron HCl (Zofran) 4 mg IV Q6H PRN PRN Reason: Nausea/Vomiting Potassium Chloride (Pharmacy To Dose - Potassium Replacement) 0 dose .XX ASDIRECTED PRN PRN Reason: RX TO MONITOR K LEVELS Temazepam (Restoril) 15 mg PO BEDTIME PRN PRN Reason: Sleep Discontinued Medications Diatrizoate Meglum/Diatrizoate Sod (Gastrografin 37%) 90 ml PO ONETIME ONE Stop: 12/02/16 22:45 Last Admin: 12/02/16 22:45 Dose: 90 ml Sodium Chloride (Normal Saline) 1,000 mls @ 1,000 mls/hr IV ONETIME ONE Stop: 12/02/16 17:17 Last Admin: 12/02/16 16:59 Dose: 1,000 mls/hr Iopamidol (Isovue-300 (61%)) 150 ml IVPUSH ONETIME ONE Stop: 12/02/16 22:45 Last Admin: 12/02/16 22:45 Dose: 120 ml Ketorolac Tromethamine (Toradol) 30 mg IVPUSH ONETIME ONE Stop: 12/02/16 16:19 Last Admin: 12/02/16 17:01 Dose: 30 mg Levothyroxine Sodium (Levothyroxine) 125 mcg PO ACBREAKFAST [facility] Last Admin: 12/03/16 05:46 Dose: 125 mcg Metoclopramide HCl (Reglan) 10 mg IVPUSH ONETIME ONE Stop: 12/03/16 00:46 Last Admin: 12/03/16 01:33 Dose: 10 mg Ondansetron HCl (Zofran) 4 mg IVPUSH ONETIME ONE Stop: 12/02/16 16:19 Last Admin: 12/02/16 17:00 Dose: 4 mg Potassium Chloride (Klor-Con M20) 20 meq PO Q3H ANDREA Stop: 12/03/16 04:01 Last Admin: 12/03/16 05:46 Dose: 20 meq - Exam Quality Assessment: DVT prophylaxis General: alert, oriented, cooperative, no acute distress HEENT: Pupils equal, Pupils reactive, EOMI, Mucous membr. moist/pink Neck: supple, trachea midline, no JVD Lungs: Normal Respiratory Effort Cardiovascular: Regular Rate, Regular Rhythm GI/Abdominal Exam: Normal Bowel Sounds, Soft, Non-Tender, No Organomegaly, No Distention (Female) Exam: Deferred Back Exam: Normal Inspection Extremities: Normal Inspection Skin: warm, dry Neurological: no new focal deficit, normal gait, normal speech Psy/Mental Status: alert, normal affect, normal mood - Problem List & Annotations (1) Gastroparesis SNOMED Code(s): 079940050 Code(s): K31.84 - GASTROPARESIS Status: Acute Current Visit: Yes (2) Ileus SNOMED Code(s): 217317509 Code(s): K56.7 - ILEUS, UNSPECIFIED Status: Acute Current Visit: Yes (3) Leukocytosis SNOMED Code(s): 953190950, 331050055 Code(s): D72.829 - ELEVATED WHITE BLOOD CELL COUNT, UNSPECIFIED Status: Acute Current Visit: No (4) Uterine fibroid SNOMED Code(s): 32878461 Code(s): D25.9 - LEIOMYOMA OF UTERUS, UNSPECIFIED Status: Acute Current Visit: Yes - Problem List Review Problem List Initiated/Reviewed/Updated: Yes - My Orders Last 24 Hours: My Active Orders 12/03/16 Lunch Clear Liquid Diet [DIET] - Plan Plan:: Assessment/Plan: Acute: Abdominal Pain - Likely 2/2 Below - Supportive Care - Pain Management Generalized Ileus - CT scan: Nonspecific fluid in the small bowel and colon perhaps due to generalized ileus. - Supportive Care - IV fluids - Prokinetic Agent - Ambulated as tolerated - Repeat AXR in am Gastrectasis cf Gastroparesis - CT scan findings - Prokinetic Agent Diffuse Fatty Liver Disease - U/S Finding - Low chol diet - Dietary consult Uterine Fibroids - CT scan V-rad: Enlarged uterus containing a uterine fibroid about 6.8 cm in diameter - May need Coat Feller eval after discharge Chronic: HTN Hypothyrodisim Plan: Med-Surg AXR, unremarkable; will start clear liquids Routine AM Labs Resume Home Medications Consider GS consult for worsening of symptoms PT/OT consult if needed SW/CM for d/c planning Will need ENGAGEMENT LIAISON appt for fibroid Code status: 1 LOS, 48-72 hours
[2016-12-04] MEDS: Metoclopramide 10 MG/2 ML SDV IVPUSH SCH ×4 (00:19→18:07)
[2016-12-04] MEDS: Sodium Chloride 0.9% 1,000 ML IV SCH ×3 (00:26→14:45)
[2016-12-04] MEDS: Levothyroxine 50 MCG Tab PO SCH (06:31)
[2016-12-04] MEDS: amLODIPine 5 MG Tab PO SCH (09:57)
[2016-12-04] MEDS: Hydrochlorothiazide 25 MG Tab PO SCH (09:59)
--- NOTE | 2016-12-04 12:43 | PCM.PN ---
- General Info Date of Service: 12/04/16 Functional Status: Reports: Pain Controlled, Tolerating Diet (advance to full liquids and soft today), Ambulating, Urinating - Review of Systems General: Reports: No Symptoms HEENT: Reports: No Symptoms Pulmonary: Reports: No Symptoms Cardiovascular: Reports: No Symptoms Gastrointestinal: Reports: Abdominal Pain (minimal) Genitourinary: Reports: No Symptoms Musculoskeletal: Reports: No Symptoms Skin: Reports: No Symptoms Neurological: Reports: No Symptoms Psychiatric: Reports: No Symptoms - Patient Data Vitals - most recent: Last Vital Signs Temp 36.8 C 12/04/16 10:01 Pulse 57 L 12/04/16 09:57 Resp 16 12/04/16 10:01 BP 120/71 12/04/16 09:57 Pulse Ox 99 12/04/16 09:57 Weight - most recent: 65.771 kg I&O - last 24 hours: Intake & Output 12/03/16 12/04/16 12/04/16 22:59 06:59 14:59 Intake Total 5117 2023 480 Balance 5119 2023 480 Lab Results last 24 hrs: Laboratory Results - last 24 hr 12/04/16 12/04/16 Range/Units 05:52 05:52 WBC 4.10 (3.98-10.04) K/mm3 RBC 3.65 L (3.98-5.22) M/mm3 Hgb 11.3 (11.2-15.7) gm/L Hct 33.6 L (34.1-44.9) % MCV 92.1 (79.4-94.8) fl MCH 31.0 (25.6-32.2) pg MCHC 33.6 (32.2-35.5) g/dl RDW Std Deviation 45.1 (36.4-46.3) fL Plt Count 194 (182-369) K/mm3 MPV 10.9 (9.4-12.3) fl Neut % (Auto) 59.5 (34.0-71.1) % Lymph % (Auto) 27.3 (19.3-51.7) % [place] % (Auto) 8.5 (4.7-12.5) % Eos % (Auto) 3.7 (0.7-5.8) Baso % (Auto) 1.0 (0.1-1.2) % Neut # (Auto) 2.44 (1.56-6.13) K/mm3 Lymph # (Auto) 1.12 L (1.18-3.74) K/mm3 [place] # (Auto) 0.35 (0.24-0.36) K/mm3 Eos # (Auto) 0.15 (0.04-0.36) K/mm3 Baso # (Auto) 0.04 (0.01-0.08) K/mm3 Sodium 142 (136-145) mEq/L Potassium 3.1 L (3.5-5.1) mEq/L Chloride 108 H (98-107) mEq/L Carbon Dioxide 26 (21-32) mEq/L Anion Gap 11.1 (5-15) BUN 6 L (7-18) mg/dL Creatinine 0.6 (0.55-1.02) mg/dL Est Cr Clr Drug Dosing 89.33 mL/min Estimated GFR (MDRD) > 60 (>60) mL/min BUN/Creatinine Ratio 10.0 L (14-18) Glucose 94 (74-106) mg/dL Calcium 8.2 L (8.5-10.1) mg/dL Magnesium 1.8 (1.8-2.4) mg/dl C-Reactive Protein 0.7 (<1.0) mg/dL [place] Results last 24 hrs: Microbiology 12/03/16 19:45 Helicobacter pylori Antigen - Final Stool / Feces - Stool, Liquid NEGATIVE [facility] Med Orders - Current: Current Medications Acetaminophen (Tylenol) 650 mg PO Q4H PRN PRN Reason: Pain (Mild 1-3)/fever Hydrocodone Bitart/Acetaminophen ([place] 325-5 Mg) 1 tab PO Q4H PRN PRN Reason: Pain (moderate 4-6) Albuterol/Ipratropium (Duoneb 3.0-0.5 Mg/3 Ml) 3 ml NEB Q4H PRN PRN Reason: Shortness Of Breath/wheezing Amlodipine Besylate (Norvasc) 5 mg PO DAILY [facility] Last Admin: 12/04/16 09:57 Dose: 5 mg Hydralazine HCl (Apresoline) 20 mg IVPUSH Q4H PRN PRN Reason: Hypertension Hydrochlorothiazide (Hydrochlorothiazide) 25 mg PO DAILY [facility] Last Admin: 12/04/16 09:59 Dose: 25 mg Hydromorphone HCl (Dilaudid) 1 mg IVPUSH Q3H PRN PRN Reason: Other Sodium Chloride (Normal Saline) 1,000 mls @ 150 mls/hr IV ASDIRECTED [facility] Last Admin: 12/04/16 08:17 Dose: 150 mls/hr Promethazine HCl 12.5 mg/ (Sodium Chloride) 50.5 mls @ 100 mls/hr IV Q6H PRN PRN Reason: Nausea/Vomiting Levothyroxine Sodium (Synthroid) 50 mcg PO ACBREAKFAST [facility] Last Admin: 12/04/16 06:31 Dose: 50 mcg Lorazepam (Ativan) 1 mg IV Q6H PRN PRN Reason: Anxiety Metoclopramide HCl (Reglan) 10 mg IVPUSH Q6H [facility] Last Admin: 12/04/16 12:12 Dose: 10 mg Metoprolol Tartrate (Lopressor) 5 mg IVPUSH Q4H PRN PRN Reason: Tachycardia Ondansetron HCl (Zofran) 4 mg IV Q6H PRN PRN Reason: Nausea/Vomiting Potassium Chloride (Potassium Chloride Solution) 40 meq PO BID [facility] Stop: 12/05/16 21:01 Temazepam (Restoril) 15 mg PO BEDTIME PRN PRN Reason: Sleep Discontinued Medications Diatrizoate Meglum/Diatrizoate Sod (Gastrografin 37%) 90 ml PO ONETIME ONE Stop: 12/02/16 22:45 Last Admin: 12/02/16 22:45 Dose: 90 ml Sodium Chloride (Normal Saline) 1,000 mls @ 1,000 mls/hr IV ONETIME ONE Stop: 12/02/16 17:17 Last Admin: 12/02/16 16:59 Dose: 1,000 mls/hr Iopamidol (Isovue-300 (61%)) 150 ml IVPUSH ONETIME ONE Stop: 12/02/16 22:45 Last Admin: 12/02/16 22:45 Dose: 120 ml Ketorolac Tromethamine (Toradol) 30 mg IVPUSH ONETIME ONE Stop: 12/02/16 16:19 Last Admin: 12/02/16 17:01 Dose: 30 mg Levothyroxine Sodium (Levothyroxine) 125 mcg PO ACBREAKFAST [facility] Last Admin: 12/03/16 05:46 Dose: 125 mcg Magnesium Sulfate (Pharmacy To Dose - Magnesium Replacement) 0 dose .XX ASDIRECTED PRN PRN Reason: RX TO MONITOR MAG LEVELS Metoclopramide HCl (Reglan) 10 mg IVPUSH ONETIME ONE Stop: 12/03/16 00:46 Last Admin: 12/03/16 01:33 Dose: 10 mg Ondansetron HCl (Zofran) 4 mg IVPUSH ONETIME ONE Stop: 12/02/16 16:19 Last Admin: 12/02/16 17:00 Dose: 4 mg Potassium Chloride (Pharmacy To Dose - Potassium Replacement) 0 dose .XX ASDIRECTED PRN PRN Reason: RX TO MONITOR K LEVELS Potassium Chloride (Klor-Con M20) 20 meq PO Q3H [facility] Stop: 12/03/16 04:01 Last Admin: 12/03/16 05:46 Dose: 20 meq - Exam Quality Assessment: DVT prophylaxis General: alert, oriented, cooperative, no acute distress HEENT: Pupils equal, Pupils reactive, EOMI, Mucous membr. moist/pink Neck: supple, trachea midline, no JVD Lungs: Normal Respiratory Effort, Decreased Breath Sounds Cardiovascular: Regular Rate, Regular Rhythm GI/Abdominal Exam: Normal Bowel Sounds, Soft, Non-Tender, No Organomegaly, No Distention (Female) Exam: Deferred Back Exam: Normal Inspection Extremities: Normal Inspection, No Pedal Edema Skin: warm Neurological: no new focal deficit, normal gait, normal speech Psy/Mental Status: alert, normal affect, normal mood - Problem List & Annotations (1) Gastroparesis SNOMED Code(s): 405477171 Code(s): K31.84 - GASTROPARESIS Status: Acute Current Visit: Yes (2) Ileus SNOMED Code(s): 448694365 Code(s): K56.7 - ILEUS, UNSPECIFIED Status: Acute Current Visit: Yes (3) Leukocytosis SNOMED Code(s): 953259985, 576762854 Code(s): D72.829 - ELEVATED WHITE BLOOD CELL COUNT, UNSPECIFIED Status: Acute Current Visit: No (4) Uterine fibroid SNOMED Code(s): 49527351 Code(s): D25.9 - LEIOMYOMA OF UTERUS, UNSPECIFIED Status: Acute Current Visit: Yes - Problem List Review Problem List Initiated/Reviewed/Updated: Yes - My Orders Last 24 Hours: My Active Orders 12/04/16 12:45 Potassium Chloride [Potassium Chloride Solution] 40 meq PO BID 12/04/16 Lunch Full Liquid Diet [DIET] - Plan Plan:: Assessment/Plan: Acute: Abdominal Pain - Likely 2/2 Below - Supportive Care - Pain Management Generalized Ileus - CT scan: Nonspecific fluid in the small bowel and colon perhaps due to generalized ileus. - Supportive Care - IV fluids - Prokinetic Agent - Ambulated as tolerated - Repeat AXR in am Gastrectasis cf Gastroparesis - CT scan findings - Prokinetic Agent Diffuse Fatty Liver Disease - U/S Finding - Low chol diet - Dietary consult Uterine Fibroids - CT scan V-rad: Enlarged uterus containing a uterine fibroid about 6.8 cm in diameter - May need Cow Buyer eval after discharge Chronic: HTN Hypothyrodisim Plan: Med-Surg AXR, unremarkable; will start clear liquids Routine AM Labs Resume Home Medications Consider GS consult for worsening of symptoms PT/OT consult if needed SW/CM for d/c planning Will need CAGE OPERATOR appt for fibroid Code status: 1 LOS, 48-72 hours
[2016-12-04] MEDS: Potassium Chloride 10% 20 MEQ/15 ML Soln 15 ML UD Cup PO SCH ×2 (13:22→20:28)
[2016-12-04] MEDS ORDERED: Sodium Chloride 0.9% 10 ML Syringe FLUSH PRN (20:17)
[2016-12-05] MEDS: Metoclopramide 10 MG/2 ML SDV IVPUSH SCH ×3 (00:03→12:11)
[2016-12-05] MEDS: Levothyroxine 50 MCG Tab PO SCH (06:00)
[2016-12-05] MEDS ORDERED: Magnesium Sulfate/Water 2 GM in Premix Bag 1 BAG IV ONE (08:47)
--- NOTE | 2016-12-05 08:47 | PCM.DCSUM1 ---
Discharge Summary - Hospital Course Free Text/Narrative:: 56 year old female with history of SBO, presented with abdominal discomfort. Radiographic imaging documented nonspecific fluid in small bowel and colon consistent with ileus not an bowel obstruction. The patient gradually had her diet advanced; she was treated with Reglan for possible gastroparesis. Supportive care was provided throughout her hospitalization. The patient has a large greater than 6 cm Leiomyoma of the uterus, and will be referred to a gynecology office. Primary Diagnosis Ileus Gastroparesis Gastrectasis Fatty Liver Hypokalemia Leiomyoma/Uterine Diet Heart Healthy Activity As tolerated Meds KCL 20 mEq daily Magnesium Oxide 400 mg BID Follow Up Shahrzad Conde, 12/21/16 Eliezer Vargas MD 12/21/16 - Discharge Data Discharge Date: 12/05/16 Discharge Disposition: Home, Self-Care 01 Condition: Good - Discharge Diagnosis/Problem(s) (1) Gastroparesis SNOMED Code(s): 111374400 ICD Code: K31.84 - GASTROPARESIS Status: Acute (2) Ileus SNOMED Code(s): 928214728 ICD Code: K56.7 - ILEUS, UNSPECIFIED Status: Acute (3) Leukocytosis SNOMED Code(s): 457241841, 610051244 ICD Code: D72.829 - ELEVATED WHITE BLOOD CELL COUNT, UNSPECIFIED Status: Acute (4) Uterine fibroid SNOMED Code(s): 78921602 ICD Code: D25.9 - LEIOMYOMA OF UTERUS, UNSPECIFIED Status: Acute - Patient Summary/Data Consults: Consultations 12/03/16 00:27 Consult to Case Management [CONS] Routine Consult to Poultry Tender [CONS] Routine - Patient Instructions Diet: Heart Healthy Diet Activity: As Tolerated Driving: May Drive Today Showering/Bathing: May Shower Notify Provider of: Increased Pain - Discharge Plan Prescriptions/Med Rec: Magnesium Oxide 400 mg PO BID #30 tablet Potassium Chloride [Potassium Chloride Solution] 20 meq PO DAILY #30 tab Home Medications: Home Meds Aspirin 81 mg PO DAILY 09/01/15 [History] Levothyroxine 50 mcg PO ACBREAKFAST 09/01/15 [History] Hydrochlorothiazide 25 mg PO DAILY 11/02/16 [History] amLODIPine [Norvasc] 0 mg PO DAILY 11/02/16 [History] Magnesium Oxide 400 mg PO BID #30 tablet 12/05/16 [Rx] Potassium Chloride [Potassium Chloride Solution] 20 meq PO DAILY #30 tab [Rx] Patient Handouts: Ileus Referrals: Sam Martins MD [Physician] - 12/21/16 ( ) Valeri Benavides DO [Primary Care Provider] - (Please call to make follow up appt within 1 week) Shahrzad Conde, ALBERTA [Nurse Practitioner] - 12/21/16 11:15 am (Please follow up with Shahrzad Conde on December 21 at 11:15am) - Discharge Summary/Plan Comment DC Time >30 min.: No - General Info Date of Service: 12/02/16 Functional Status: Reports: Pain Controlled, Tolerating Diet, Ambulating, Urinating - Review of Systems General: Reports: No Symptoms HEENT: Reports: No Symptoms Pulmonary: Reports: No Symptoms Cardiovascular: Reports: No Symptoms Gastrointestinal: Reports: No Symptoms Genitourinary: Reports: No Symptoms Musculoskeletal: Reports: No Symptoms Skin: Reports: No Symptoms Neurological: Reports: No Symptoms Psychiatric: Reports: No Symptoms - Patient Data Vitals - Most Recent: Last Vital Signs Temp 36.3 C 12/05/16 03:21 Pulse 57 L 12/05/16 03:21 Resp 15 12/05/16 03:21 BP 113/62 12/05/16 03:21 Pulse Ox 94 L 12/05/16 03:21 Weight - Most Recent: 64.637 kg I&O - Last 24 hours: Intake & Output 12/04/16 12/05/16 12/05/16 22:59 06:59 14:59 Intake Total 2201 500 Balance 2201 500 Lab Results - Last 24 hrs: Laboratory Results - last 24 hr 12/05/16 12/05/16 Range/Units 05:52 05:52 WBC 4.88 (3.98-10.04) K/mm3 RBC 3.97 L (3.98-5.22) M/mm3 Hgb 12.2 (11.2-15.7) gm/L Hct 36.4 (34.1-44.9) % MCV 91.7 (79.4-94.8) fl MCH 30.7 (25.6-32.2) pg MCHC 33.5 (32.2-35.5) g/dl RDW Std Deviation 44.9 (36.4-46.3) fL Plt Count 218 (182-369) K/mm3 MPV 11.0 (9.4-12.3) fl Neut % (Auto) 57.6 (34.0-71.1) % Lymph % (Auto) 26.6 (19.3-51.7) % [place] % (Auto) 10.7 (4.7-12.5) % Eos % (Auto) 4.5 (0.7-5.8) Baso % (Auto) 0.6 (0.1-1.2) % Neut # (Auto) 2.81 (1.56-6.13) K/mm3 Lymph # (Auto) 1.30 (1.18-3.74) K/mm3 [place] # (Auto) 0.52 H (0.24-0.36) K/mm3 Eos # (Auto) 0.22 (0.04-0.36) K/mm3 Baso # (Auto) 0.03 (0.01-0.08) K/mm3 Sodium 141 (136-145) mEq/L Potassium 3.8 (3.5-5.1) mEq/L Chloride 106 (98-107) mEq/L Carbon Dioxide 25 (21-32) mEq/L Anion Gap 13.8 (5-15) BUN 7 (7-18) mg/dL Creatinine 0.7 (0.55-1.02) mg/dL Est Cr Clr Drug Dosing 76.57 mL/min Estimated GFR (MDRD) > 60 (>60) mL/min BUN/Creatinine Ratio 10.0 L (14-18) Glucose 105 (74-106) mg/dL Calcium 9.1 (8.5-10.1) mg/dL Magnesium 1.9 (1.8-2.4) mg/dl C-Reactive Protein 0.2 (<1.0) mg/dL Med Orders - Current: Current Medications Acetaminophen (Tylenol) 650 mg PO Q4H PRN PRN Reason: Pain (Mild 1-3)/fever Hydrocodone Bitart/Acetaminophen ([place] 325-5 Mg) 1 tab PO Q4H PRN PRN Reason: Pain (moderate 4-6) Albuterol/Ipratropium (Duoneb 3.0-0.5 Mg/3 Ml) 3 ml NEB Q4H PRN PRN Reason: Shortness Of Breath/wheezing Amlodipine Besylate (Norvasc) 5 mg PO DAILY [facility] Last Admin: 12/04/16 09:57 Dose: 5 mg Hydralazine HCl (Apresoline) 20 mg IVPUSH Q4H PRN PRN Reason: Hypertension Hydrochlorothiazide (Hydrochlorothiazide) 25 mg PO DAILY [facility] Last Admin: 12/04/16 09:59 Dose: 25 mg Hydromorphone HCl (Dilaudid) 1 mg IVPUSH Q3H PRN PRN Reason: Other Promethazine HCl 12.5 mg/ (Sodium Chloride) 50.5 mls @ 100 mls/hr IV Q6H PRN PRN Reason: Nausea/Vomiting Levothyroxine Sodium (Synthroid) 50 mcg PO ACBREAKFAST [facility] Last Admin: 12/05/16 06:00 Dose: 50 mcg Lorazepam (Ativan) 1 mg IV Q6H PRN PRN Reason: Anxiety Metoclopramide HCl (Reglan) 10 mg IVPUSH Q6H [facility] Last Admin: 12/05/16 06:00 Dose: 10 mg Metoprolol Tartrate (Lopressor) 5 mg IVPUSH Q4H PRN PRN Reason: Tachycardia Ondansetron HCl (Zofran) 4 mg IV Q6H PRN PRN Reason: Nausea/Vomiting Potassium Chloride (Potassium Chloride Solution) 40 meq PO BID [facility] Stop: 12/05/16 21:01 Last Admin: 12/04/16 20:28 Dose: 40 meq Sodium Chloride (Saline Flush) 10 ml FLUSH ASDIRECTED PRN PRN Reason: Keep Vein Open Temazepam (Restoril) 15 mg PO BEDTIME PRN PRN Reason: Sleep Discontinued Medications Diatrizoate Meglum/Diatrizoate Sod (Gastrografin 37%) 90 ml PO ONETIME ONE Stop: 12/02/16 22:45 Last Admin: 12/02/16 22:45 Dose: 90 ml Sodium Chloride (Normal Saline) 1,000 mls @ 1,000 mls/hr IV ONETIME ONE Stop: 12/02/16 17:17 Last Admin: 12/02/16 16:59 Dose: 1,000 mls/hr Sodium Chloride (Normal Saline) 1,000 mls @ 150 mls/hr IV ASDIRECTED [facility] Last Admin: 12/04/16 14:45 Dose: 150 mls/hr Iopamidol (Isovue-300 (61%)) 150 ml IVPUSH ONETIME ONE Stop: 12/02/16 22:45 Last Admin: 12/02/16 22:45 Dose: 120 ml Ketorolac Tromethamine (Toradol) 30 mg IVPUSH ONETIME ONE Stop: 12/02/16 16:19 Last Admin: 12/02/16 17:01 Dose: 30 mg Levothyroxine Sodium (Levothyroxine) 125 mcg PO ACBREAKFAST [facility] Last Admin: 12/03/16 05:46 Dose: 125 mcg Magnesium Sulfate (Pharmacy To Dose - Magnesium Replacement) 0 dose .XX ASDIRECTED PRN PRN Reason: RX TO MONITOR MAG LEVELS Metoclopramide HCl (Reglan) 10 mg IVPUSH ONETIME ONE Stop: 12/03/16 00:46 Last Admin: 12/03/16 01:33 Dose: 10 mg Ondansetron HCl (Zofran) 4 mg IVPUSH ONETIME ONE Stop: 12/02/16 16:19 Last Admin: 12/02/16 17:00 Dose: 4 mg Potassium Chloride (Pharmacy To Dose - Potassium Replacement) 0 dose .XX ASDIRECTED PRN PRN Reason: RX TO MONITOR K LEVELS Potassium Chloride (Klor-Con M20) 20 meq PO Q3H [facility] Stop: 12/03/16 04:01 Last Admin: 12/03/16 05:46 Dose: 20 meq - Exam Quality Assessment: Reports: DVT Prophylaxis General: Reports: Alert, Oriented, Cooperative, No Acute Distress HEENT: Reports: Pupils Equal, Pupils Reactive, EOMI Neck: Reports: Supple, Trachea Midline, No JVD Lungs: Reports: Normal Respiratory Effort Cardiovascular: Reports: Regular Rate, Regular Rhythm GI/Abdominal Exam: Normal Bowel Sounds, Soft, Non-Tender, No Organomegaly, No Distention (Female) Exam: Deferred Rectal (Female) Exam: Deferred Back Exam: Reports: Normal Inspection Extremities: Normal Inspection, Normal Range of Motion, Non-Tender, No Pedal Edema, Normal Capillary Refill Skin: Reports: Warm Neurological: Reports: No New Focal Deficit, Normal Gait, Normal Speech Psy/Mental Status: Reports: Alert, Normal Affect, Normal Mood *Q Meaningful Use (DIS) - VTE *Q VTE Criteria *Q: - Stroke *Q Stroke Criteria *Q: - AMI *Q AMI Criteria *Q:
[2016-12-05] MEDS: Hydrochlorothiazide 25 MG Tab PO SCH (10:19)
[2016-12-05] MEDS: Potassium Chloride 10% 20 MEQ/15 ML Soln 15 ML UD Cup PO SCH (10:19)
[2016-12-05] MEDS: amLODIPine 5 MG Tab PO SCH (10:19)
[2016-12-05 10:24] VITALS: BP 110/63
[2016-12-05] MEDS ORDERED: Magnesium Oxide 400 MG Tab PO SCH (21:00)
== END 2016-12-05 12:05 | disposition home or self-care (01) | DRG 247 ==
LOC: JD.ED 15:01 → JD.MS 12-03 00:23
PROVIDERS: ADMIT Internal Medicine; ATTEND Internal Medicine
DX: K56.7 Ileus, unspecified (principal); K31.84 Gastroparesis; K76.0 Fatty (change of) liver, not elsewhere classified; D72.829 Elevated white blood cell count, unspecified; D25.9 Leiomyoma of uterus, unspecified; E03.9 Hypothyroidism, unspecified; I10 Essential (primary) hypertension; Z88.2 Allergy status to sulfonamides; Z79.82 Long term (current) use of aspirin; Z79.899 Other long term (current) drug therapy
CPT/HCPCS: 36415; 74000; 74000-26; 74022; 74022-26; 74177; 74177-26; 76705; 76705-26; 80048; 80053; 81001; 83690; 83735; 85025; 86140; 87086; 87338; 96361; 96374; 96375; 99284; 99285-25; A9270-GY; J1885; J2405; J2765; J3475; J7040; Q9963; Q9967

== ENCOUNTER 2019-08-20 21:48 | Emergency (ER) | payer BC ==
--- NOTE | 2019-08-20 23:23 | EDM.PDOC ---
ED HPI GENERAL MEDICAL PROBLEM - General Chief Complaint: Respiratory Problem Stated Complaint: CHILLS SOB Time Seen by Provider: 08/20/19 23:03 Source of Information: Reports: Patient History Limitations: Reports: No Limitations - History of Present Illness INITIAL COMMENTS - FREE TEXT/NARRATIVE: Mrs. Bartlett is a very pleasant 58-year-old woman with a past medical history significant for hypertension and hypothyroidism, who now presents to the ED complaining of 2 days of shaking chills, but no fever. She then developed some dyspnea and nausea tonight, along with a pressure sensation that was felt across her upper abdomen in a narrow band distribution, however, those symptoms resolved after 1 hour, and have not returned. No vomiting. She also reports having some nausea 2 days ago. Otherwise, the patient denies recent fever, chills, sore throat, ear pain, nasal or sinus congestion, cough, dyspnea, chest pain, palpitations, nausea, vomiting, constipation, diarrhea, abdominal pain, urinary symptoms, recent weight gain or weight loss, recent bloody bowel movements or black bowel movements, recent joint aches, headaches, or rashes. No prior similar symptoms. Here in the ED, the patient's initial BP was found to be elevated at 155/83, but decreased to 131/73 without treatment. She is otherwise hemodynamically stable, afebrile, saturating 97 to 99% on room air. The patient's PCP is Dr. Trudi Sweeney. She did not receive an influenza vaccine this season, but agreed to receive one here today. Bilateral Chest Pain Score (Numeric/FACES): 2 - Related Data Allergies Allergy/AdvReac Type Severity Reaction Status Date / Time Sulfa (Sulfonamide Allergy Hives Verified 08/20/19 21:57 Antibiotics) Home Meds: Home Meds Aspirin 81 mg PO DAILY 09/01/15 [History] Levothyroxine 50 mcg PO ACBREAKFAST 09/01/15 [History] Hydrochlorothiazide 25 mg PO DAILY 11/02/16 [History] amLODIPine [Norvasc] 0 mg PO DAILY 11/02/16 [History] Past Medical History HEENT History: Reports: Impaired Vision Cardiovascular History: Reports: Hypertension Gastrointestinal History: Reports: Bowel Obstruction Musculoskeletal History: Reports: Back Pain, Chronic (scoliosis) Endocrine/Metabolic History: Reports: Hypothyroidism - Infectious Disease History Infectious Disease History: Reports: Chicken Pox, Measles, Mumps - Past Surgical History GI Surgical History: Reports: Appendectomy, Lysis of Adhesions (x 2, open) Social & Family History - Family History Family Medical History: Noncontributory - Tobacco Use Smoking Status *Q: Never Smoker - Caffeine Use Caffeine Use: Reports: Tea - Alcohol Use Alcohol Use History: Yes Alcohol Use Frequency: Socially - Recreational Drug Use Recreational Drug Use: No - Living Situation & Occupation Living situation: Reports: , with Spouse Occupation: Employed (Teacher) ED ROS GENERAL - Review of Systems Review Of Systems: Comprehensive ROS is negative, except as noted in HPI. ED EXAM, GENERAL - Physical Exam Exam: See Below Exam Limited By: No Limitations General Appearance: Alert, WD/WN, No Apparent Distress Eye Exam: Bilateral Eye: EOMI, Normal Inspection Ears: Normal External Exam, Hearing Grossly Normal Nose: Normal Inspection Throat/Mouth: Normal Inspection, Normal Lips, Normal Voice, No Airway Compromise Head: Atraumatic, Normocephalic Neck: Normal Inspection, Full Range of Motion Respiratory/Chest: No Respiratory Distress, Lungs Clear, Normal Breath Sounds, No Accessory Muscle Use Cardiovascular: Normal Peripheral Pulses, Regular Rate, Rhythm, No Edema, No Gallop, No JVD, No Murmur, No Rub Peripheral Pulses: 4+: Radial (L), Radial (R) GI/Abdominal: Normal Bowel Sounds, Soft, Non-Tender (including the RUQ and epigastrium), No Organomegaly, No Distention, No Abnormal Bruit, No Mass (Female) Exam: Deferred Rectal (Female) Exam: Deferred Back Exam: Normal Inspection, Full Range of Motion. No: CVA Tenderness (L), CVA Tenderness (R) Extremities: Normal Inspection, Normal Range of Motion, No Pedal Edema, Normal Capillary Refill Neurological: Alert, Oriented, Normal Cognition, No Motor/Sensory Deficits Psychiatric: Normal Affect Skin Exam: Warm, Dry, Intact, Normal Color, No Rash EKG INTERPRETATION EKG Date: 08/20/19 Time: 22:02 Rhythm: NSR Rate (Beats/Min): 69 [place]: Normal P-Wave: Enlarged (LAE) QRS: Normal ST-T: Depressed (ST depression in II, aVF, V3-V6, but no T-wave inversions) QT: Normal Comparison: NA - No Prior EKG Course - Vital Signs Last Recorded V/S: Last Vital Signs Temp 36.7 C 04/07/20 01:12 Pulse 70 08/21/19 01:12 Resp 16 08/21/19 01:12 BP 131/65 08/21/19 01:12 Pulse Ox 95 08/21/19 01:12 Orthostatic Blood Pressure [ 125/68 Standing] Orthostatic Blood Pressure [ 121/73 Sitting] Orthostatic Blood Pressure [ 131/65 Supine] - Orders/Labs/Meds Orders: Active Orders 24 hr Category Date Time Status EKG Documentation Completion [RC] STAT Care 08/20/19 23:06 Active Influenza Vaccine Charge [RC] .DISCHARGE Care 08/20/19 23:19 Active Orthostatic Vital Signs [RC] STAT Care 08/20/19 23:06 Active Chest 2V [CR] Stat Exams 08/20/19 23:17 Taken CULTURE URINE [RM] Stat Lab 08/21/19 00:43 Received Labs: Laboratory Tests 08/20/19 08/20/19 08/20/19 Range/Units 23:50 23:54 23:54 WBC 9.05 (3.98-10.04) K/mm3 RBC 4.56 (3.98-5.22) M/mm3 Hgb 14.0 D (11.2-15.7) gm/dl Hct 42.1 (34.1-44.9) % MCV 92.3 (79.4-94.8) fl MCH 30.7 (25.6-32.2) pg MCHC 33.3 (32.2-35.5) g/dl RDW Std Deviation 44.3 (36.4-46.3) fL Plt Count 268 (182-369) K/mm3 MPV 10.6 (9.4-12.3) fl Neutrophils % (Manual) 80 H (40-60) % Band Neutrophils % 0 (0-10) % Lymphocytes % (Manual) 14 L (20-40) % Atypical Lymphs % 0 % Monocytes % (Manual) 4 (2-10) % Eosinophils % (Manual) 2 (0.7-5.8) % Basophils % (Manual) 0 L (0.1-1.2) Platelet Estimate Adequate RBC Morph Comment Normal D-Dimer, Quantitative (0.19-0.50) mg/L Sodium 141 (136-145) mEq/L Potassium 3.1 L (3.5-5.1) mEq/L Chloride 103 (98-107) mEq/L Carbon Dioxide 29 (21-32) mEq/L Anion Gap 12.1 (5-15) BUN 22 H (7-18) mg/dL Creatinine 0.8 (0.55-1.02) mg/dL Est Cr Clr Drug Dosing 65.38 mL/min Estimated GFR (MDRD) > 60 (>60) mL/min BUN/Creatinine Ratio 27.5 H (14-18) Glucose 155 H (74-106) mg/dL Calcium 9.5 (8.5-10.1) mg/dL Magnesium 2.0 (1.8-2.4) mg/dl Total Bilirubin 0.9 (0.2-1.0) mg/dL AST 26 (15-37) U/L ALT 64 H (14-59) U/L Alkaline Phosphatase 99 (46-116) U/L Troponin I < 0.017 (0.00-0.056) ng/mL Total Protein 8.3 H (6.4-8.2) g/dl Albumin 4.3 (3.4-5.0) g/dl Globulin 4.0 gm/dL Albumin/Globulin Ratio 1.1 (1-2) TSH 3rd Generation 1.844 (0.358-3.74) uIU/mL Urine Color Yellow (Yellow) Urine Appearance Clear (Clear) Urine pH 7.0 (5.0-8.0) Ur Specific [place] 1.020 (1.005-1.030) Urine Protein Negative (Negative) Urine Glucose (UA) Negative (Negative) Urine Ketones Negative (Negative) Urine Occult Blood Trace-lysed H (Negative) Urine Nitrite Negative (Negative) Urine Bilirubin Negative (Negative) Urine Urobilinogen 0.2 (0.2-1.0) Ur Leukocyte Esterase 1+ H (Negative) Urine RBC 0-5 (0-5) /hpf Urine WBC 5-10 H (0-5) /hpf Urine WBC Clumps Rare (NOT SEEN) /hpf Ur Epithelial Cells 0-5 (0-5) /hpf Urine Bacteria Rare (FEW) /hpf Urine Mucus Rare (FEW) /hpf 08/20/19 Range/Units 23:54 WBC (3.98-10.04) K/mm3 RBC (3.98-5.22) M/mm3 Hgb (11.2-15.7) gm/dl Hct (34.1-44.9) % MCV (79.4-94.8) fl MCH (25.6-32.2) pg MCHC (32.2-35.5) g/dl RDW Std Deviation (36.4-46.3) fL Plt Count (182-369) K/mm3 MPV (9.4-12.3) fl Neutrophils % (Manual) (40-60) % Band Neutrophils % (0-10) % Lymphocytes % (Manual) (20-40) % Atypical Lymphs % % Monocytes % (Manual) (2-10) % Eosinophils % (Manual) (0.7-5.8) % Basophils % (Manual) (0.1-1.2) Platelet Estimate RBC Morph Comment D-Dimer, Quantitative < 0.19 L (0.19-0.50) mg/L Sodium (136-145) mEq/L Potassium (3.5-5.1) mEq/L Chloride (98-107) mEq/L Carbon Dioxide (21-32) mEq/L Anion Gap (5-15) BUN (7-18) mg/dL Creatinine (0.55-1.02) mg/dL Est Cr Clr Drug Dosing mL/min Estimated GFR (MDRD) (>60) mL/min BUN/Creatinine Ratio (14-18) Glucose (74-106) mg/dL Calcium (8.5-10.1) mg/dL Magnesium (1.8-2.4) mg/dl Total Bilirubin (0.2-1.0) mg/dL AST (15-37) U/L ALT (14-59) U/L Alkaline Phosphatase (46-116) U/L Troponin I (0.00-0.056) ng/mL Total Protein (6.4-8.2) g/dl Albumin (3.4-5.0) g/dl Globulin gm/dL Albumin/Globulin Ratio (1-2) TSH 3rd Generation (0.358-3.74) uIU/mL Urine Color (Yellow) Urine Appearance (Clear) Urine pH (5.0-8.0) Ur Specific [place] (1.005-1.030) Urine Protein (Negative) Urine Glucose (UA) (Negative) Urine Ketones (Negative) Urine Occult Blood (Negative) Urine Nitrite (Negative) Urine Bilirubin (Negative) Urine Urobilinogen (0.2-1.0) Ur Leukocyte Esterase (Negative) Urine RBC (0-5) /hpf Urine WBC (0-5) /hpf Urine WBC Clumps (NOT SEEN) /hpf Ur Epithelial Cells (0-5) /hpf Urine Bacteria (FEW) /hpf Urine Mucus (FEW) /hpf Meds: Medications Discontinued Medications Generic Name Dose Route Start Last Admin Trade Name Hema PRN Reason Stop Dose Admin Influenza Virus Vaccine 1 each 08/20/19 23:19 Pharmacy To Dose - Influenza Vaccine IM 08/20/19 23:20 ONETIME ONE Influenza Virus Vaccine 60 mcg 08/20/19 23:30 08/20/19 23:38 Fluzone Quad Syringe IM 08/20/19 23:31 60 mcg .ONCE ONE Administration Potassium Chloride 40 meq 08/21/19 00:46 08/21/19 01:09 Klor-Con M20 PO 08/21/19 00:47 40 meq ONETIME ONE Administration - Re-Assessments/Exams Free Text/Narrative Re-Assessment/Exam: 08/20/19 23:20 The patient is not orthostatic. As above, the patient's principal complaint is of 2 days of shaking chills, but no known fever. She also had some transient shortness of breath tonight, along with some pressure felt across her upper abdomen, associated with nausea, that lasted about an hour, and his now resolved. The etiology of the symptoms is not immediately clear. I have ordered a work-up that includes blood work, a urinalysis, a chest x-ray, and an ECG. 08/21/19 00:14 Two-view chest radiograph appears to be grossly normal. The cardiac silhouette is within normal limits. No pulmonary vascular congestion. No pleural effusions. No focal infiltrate. No pneumothorax. Thoracolumbar scoliosis noted. Formal read per the Radiologist pending. 08/21/19 00:43 The patient's CBC is unremarkable. Her CMP is remarkable for potassium mildly depressed at 3.1, and a BUN mildly elevated at 22 with a creatinine normal at 0.8. Her blood glucose is elevated at 155. Her AST is normal at 26, but her ALT is mildly elevated at 64. The remainder of her CMP is unremarkable. Her magnesium level is within normal limits at 2.0. Her TSH is within normal limits at 1.844. Her troponin is undetectably low. Her D-dimer is undetectably low. Her urinalysis is remarkable for trace occult blood with 0-5 RBCs, 1+ leukocyte esterase with 5-10 WBCs, nitrate negative with rare bacteria, and 0-5 squamous epithelial cells. Based on the above, I have ordered a urine culture, but I am not going to start her on antibiotics. She will be given 40 mEq of oral KCl. 08/21/19 01:02 Test results discussed with the patient. As above, tonight's work-up is grossly unremarkable, and does not explain the cause of her symptoms. The patient queried whether or not it could have been due to a panic attack. Anxiety/stress could have caused her symptoms. I believe the patient is safe to discharge home. Departure - Departure Time of Disposition: 01:03 Disposition: Home, Self-Care 01 Condition: Good Clinical Impression: Shaking chills, Dyspnea, Hypokalemia, ST segment depression - Discharge Information *PRESCRIPTION DRUG MONITORING PROGRAM REVIEWED*: Not Applicable *COPY OF PRESCRIPTION DRUG MONITORING REPORT IN PATIENT MARLEE: Not Applicable Instructions: Shortness of Breath, Adult, [id number], Hypokalemia Referrals: Trudi Guan MD [Primary Care Provider] - Forms: ED Department Discharge Additional Instructions: You were seen in the emergency room for 2 days of shaking chills without fever, then shortness of breath tonight, along with nausea and a pressure sensation across your upper abdomen. Work-up in the ER included blood work, a urinalysis, a chest x-ray, positional blood pressure checks, and an ECG. Your blood work found your potassium to be mildly depressed at 3.1. You were given oral potassium replacement in the ER. Your ECG found some nonspecific abnormalities. Unfortunately, we do not have a prior ECG to compare it to. Your urinalysis had some white blood cells in it, but was otherwise unremarkable. A sample of your urine has been sent for culture. The remainder of your work-up was unremarkable, and does not explain the cause of your symptoms. If your symptoms persist, we recommend that you follow-up with your PCP, Dr. Trudi Sweeney, or return to the ED for reevaluation. Sepsis Event Note - Evaluation Sepsis Screening Result: No Definite Risk - Focused Exam Vital Signs: Vital Signs Temp Pulse Resp BP Pulse Ox Pulse Ox 08/21/19 01:12 36.7 C 70 16 131/65 95 08/20/19 23:54 57 L 16 123/62 95 08/20/19 23:07 98 08/20/19 22:23 36.6 C 77 18 131/73 97 08/20/19 21:58 36.4 C 85 21 H 155/83 H 99 Date Exam was Performed: 08/21/19 Time Exam was Performed: 01:42 - My Orders Last 24 Hours: My Active Orders 08/20/19 23:06 EKG Documentation Completion [RC] STAT Orthostatic Vital Signs [RC] STAT 08/20/19 23:17 Chest 2V [CR] Stat 08/20/19 23:19 Influenza Vaccine Charge [RC] .DISCHARGE 08/21/19 00:43 CULTURE URINE [RM] Stat - Assessment/Plan Last 24 Hours: My Active Orders 08/20/19 23:06 EKG Documentation Completion [RC] STAT Orthostatic Vital Signs [RC] STAT 08/20/19 23:17 Chest 2V [CR] Stat 08/20/19 23:19 Influenza Vaccine Charge [RC] .DISCHARGE 08/21/19 00:43 CULTURE URINE [RM] Stat
[2019-08-20] MEDS ORDERED: FLU Vacc QS2019-20(6MOS+)/PF 60 MCG/0.5 ML SYRINGE IM ONE (23:30)
[2019-08-21] MEDS ORDERED: Potassium Chloride 20 MEQ Tab.ER PO ONE (00:46)
[2019-08-21 01:23] VITALS: BP 131/65; PULSE 70
--- NOTE | 2019-08-21 08:36 | CR ---
Chest: 2 views of the chest were obtained. Comparison: Chest x-ray of 11/02/16. Heart size and mediastinum are normal. Lungs show no acute parenchymal change. Scoliosis is noted within the spine. Impression: 1. Nothing acute is seen on 2 view chest x-ray. Diagnostic code #2 This report was dictated in MDT
== END 2019-08-21 01:20 | disposition home or self-care (01) ==
LOC: JD.ED 21:48
DX: E87.6 Hypokalemia (principal); R25.9 Unspecified abnormal involuntary movements; R68.83 Chills (without fever); R94.31 Abnormal electrocardiogram [ECG] [EKG]; I10 Essential (primary) hypertension; E03.9 Hypothyroidism, unspecified; Z88.2 Allergy status to sulfonamides; Z79.82 Long term (current) use of aspirin; Z79.899 Other long term (current) drug therapy
CPT/HCPCS: 36415; 71046; 80053; 81001; 83735; 84443; 84484; 85007; 85027; 85379; 87086; 90471; 90686; 93005; 99285; A9270; 93010; 99283; G0008

== ENCOUNTER 2019-08-22 19:47 | Emergency (ER) | payer BC, OTHER ==
[2019-08-22 20:20] VITALS: BP 156/80; PULSE 70
--- NOTE | 2019-08-22 20:56 | EDM.PDOC ---
ED HPI GENERAL MEDICAL PROBLEM - General Chief Complaint: Respiratory Problem Stated Complaint: CHILLS SOB Time Seen by Provider: 08/22/19 20:18 - Related Data Allergies Allergy/AdvReac Type Severity Reaction Status Date / Time Sulfa (Sulfonamide Allergy Hives Verified 08/22/19 20:20 Antibiotics) Home Meds: Home Meds Aspirin 81 mg PO DAILY 09/01/15 [History] Levothyroxine 50 mcg PO ACBREAKFAST 09/01/15 [History] Hydrochlorothiazide 25 mg PO DAILY 11/02/16 [History] amLODIPine [Norvasc] 5 mg PO DAILY 11/02/16 [History] Past Medical History HEENT History: Reports: Impaired Vision Cardiovascular History: Reports: Hypertension Gastrointestinal History: Reports: Bowel Obstruction [employer] History: Reports: Musculoskeletal History: Reports: Back Pain, Chronic Other Musculoskeletal History: Scoliosis Endocrine/Metabolic History: Reports: Hypothyroidism - Infectious Disease History Infectious Disease History: Reports: Chicken Pox, Measles, Mumps - Past Surgical History GI Surgical History: Reports: Appendectomy, Lysis of Adhesions Social & Family History - Family History Family Medical History: Noncontributory - Tobacco Use Smoking Status *Q: Never Smoker Second Hand Smoke Exposure: No - Caffeine Use Caffeine Use: Reports: Tea - Recreational Drug Use Recreational Drug Use: No - Living Situation & Occupation Living situation: Reports: , with Spouse Occupation: Employed (Teacher) Course - Vital Signs Last Recorded V/S: Last Vital Signs Temp 36.2 C 08/22/19 20:13 Pulse 70 08/22/19 20:13 Resp 18 08/22/19 20:13 BP 156/80 H 08/22/19 20:13 Pulse Ox 99 08/22/19 20:13 - Orders/Labs/Meds Orders: Active Orders 24 hr Category Date Time Status EKG Documentation Completion [RC] STAT Care 08/22/19 20:44 Ordered Chest 2V [CR] Stat Exams 08/22/19 20:46 Ordered C-REACTIVE PROTEIN [CHEM] Stat Lab 08/22/19 20:45 Ordered CBC WITH MANUAL DIFF [HEME] Stat Lab 08/22/19 20:44 Ordered COMPREHENSIVE METABOLIC PN,CMP [CHEM] Stat Lab 08/22/19 20:44 Ordered D-DIMER QUANTITATIVE [COAG] Stat Lab 08/22/19 20:45 Ordered FERRITIN [CHEM] Stat Lab 08/22/19 20:46 Ordered LACTATE DEHYDROGENASE,LDH [CHEM] Stat Lab 08/22/19 20:46 Ordered MAGNESIUM [CHEM] Stat Lab 08/22/19 20:44 Ordered PRO B-TYPE NATRIUR PEPT,BNPPRO [CHEM] Stat Lab 08/22/19 20:46 Ordered TROPONIN I [CHEM] Stat Lab 08/22/19 20:44 Ordered Departure - Discharge Information Referrals: Trudi Guan MD [Primary Care Provider] - Sepsis Event Note - Evaluation Sepsis Screening Result: No Definite Risk - Focused Exam Vital Signs: Vital Signs Temp Pulse Resp BP Pulse Ox 08/22/19 20:13 36.2 C 70 18 156/80 H 99 Date Exam was Performed: 08/22/19 Time Exam was Performed: 20:47 - My Orders Last 24 Hours: My Active Orders 08/22/19 20:44 EKG Documentation Completion [RC] STAT CBC WITH MANUAL DIFF [HEME] Stat COMPREHENSIVE METABOLIC PN,CMP [CHEM] Stat MAGNESIUM [CHEM] Stat TROPONIN I [CHEM] Stat 08/22/19 20:45 C-REACTIVE PROTEIN [CHEM] Stat D-DIMER QUANTITATIVE [COAG] Stat 08/22/19 20:46 Chest 2V [CR] Stat FERRITIN [CHEM] Stat LACTATE DEHYDROGENASE,LDH [CHEM] Stat PRO B-TYPE NATRIUR PEPT,BNPPRO [CHEM] Stat - Assessment/Plan Last 24 Hours: My Active Orders 08/22/19 20:44 EKG Documentation Completion [RC] STAT CBC WITH MANUAL DIFF [HEME] Stat COMPREHENSIVE METABOLIC PN,CMP [CHEM] Stat MAGNESIUM [CHEM] Stat TROPONIN I [CHEM] Stat 08/22/19 20:45 C-REACTIVE PROTEIN [CHEM] Stat D-DIMER QUANTITATIVE [COAG] Stat 08/22/19 20:46 Chest 2V [CR] Stat FERRITIN [CHEM] Stat LACTATE DEHYDROGENASE,LDH [CHEM] Stat PRO B-TYPE NATRIUR PEPT,BNPPRO [CHEM] Stat
--- NOTE | 2019-08-22 21:04 | EDM.PDOC ---
ED HPI GENERAL MEDICAL PROBLEM - General Chief Complaint: Respiratory Problem Stated Complaint: CHILLS SOB Time Seen by Provider: 08/22/19 20:30 Source of Information: Reports: Patient History Limitations: Reports: No Limitations - History of Present Illness INITIAL COMMENTS - FREE TEXT/NARRATIVE: Mrs. Bartlett is a most pleasant 58-year-old woman with a past medical history significant for hypertension and hypothyroidism, who was seen by me in this ED 2 nights ago, 08/20/2019, for a complaint at that time of 2 days of shaking chills without fever. She then developed dyspnea and nausea that night, along with a pressure sensation that was felt across her upper abdomen in a narrow band distribution, however, those symptoms resolved after 1 hour, and did not return; they were not present when I evaluated the patient. She had not vomited , however, she had experienced some nausea 2 days prior. She was hemodynamically stable, afebrile, saturating 97 to 99% on room air. Work-up included a CBC, CMP, level, troponin, TSH, a D-dimer, a urinalysis, a 2 view chest x-ray, orthostatics, and an ECG. Her potassium was found to be mildly depressed at 3.1, and her BUN mildly elevated at 22 with a creatinine normal at 0.8. Her blood glucose was elevated at 155, and her ALT was slightly elevated at 64, with an AST normal at 26. The remainder of her blood work was unremarkable. Her urinalysis was abnormal, but not consistent with a UTI. A urine culture was sent, which has since returned as "Mixed christine suggestive of contamination". The patient was not started on an antibiotic. She was not orthostatic. Her chest x-ray was unremarkable, and her ECG found a normal sinus rhythm at 69 bpm, left atrial enlargement, and ST depressions in II, aVF, and V3-V6, however, there were no T wave inversions. She was given oral potassium chloride. With a negative work-up, the patient wondered if her symptoms could have been due to a panic attack, which was possible. She was discharged home with the recommendation that she follow-up with her PCP or return to the ED if her symptoms persisted. The patient now returns to the ED stating that she has continued to have episodes of shaking chills, primarily in the afternoon and evenings, while she feels fine in the morning. She has not had a fever. She also has some episodes of dyspnea, lasting about 1 hour, then recurring about every 2 hours. She expressly denies recent sore throat, ear pain, nasal or sinus congestion, cough, chest pain, palpitations, nausea, vomiting, constipation, diarrhea, abdominal pain, urinary symptoms, recent weight gain or weight loss, recent bloody bowel movements or black bowel movements, headaches, or rashes. She reports occasional hand pain that she feels is due to arthritis, but that has been going on for about a year. The patient states that she did not take any [id number] or home remedies prior to coming to the ED. Here in the ED, the patient's initial BP is found to be elevated at 156/80, otherwise, she is hemodynamically stable, afebrile, saturating 99% on room air. The patient's PCP is Dr. Trudi Sweeney. She received an influenza vaccine on 08/20/2019. - Related Data Allergies Allergy/AdvReac Type Severity Reaction Status Date / Time Sulfa (Sulfonamide Allergy Hives Verified 08/22/19 20:20 Antibiotics) Home Meds: Home Meds Aspirin 81 mg PO DAILY 09/01/15 [History] Levothyroxine 50 mcg PO ACBREAKFAST 09/01/15 [History] Hydrochlorothiazide 25 mg PO DAILY 11/02/16 [History] amLODIPine [Norvasc] 5 mg PO DAILY 11/02/16 [History] Past Medical History HEENT History: Reports: Impaired Vision Cardiovascular History: Reports: Hypertension Gastrointestinal History: Reports: Bowel Obstruction Musculoskeletal History: Reports: Back Pain, Chronic (scoliosis) Endocrine/Metabolic History: Reports: Hypothyroidism - Infectious Disease History Infectious Disease History: Reports: Chicken Pox, Measles, Mumps - Past Surgical History GI Surgical History: Reports: Appendectomy, Lysis of Adhesions (x 2, by laparotomy) Social & Family History - Family History Family Medical History: Noncontributory - Tobacco Use Smoking Status *Q: Never Smoker Second Hand Smoke Exposure: No - Caffeine Use Caffeine Use: Reports: Tea - Alcohol Use Alcohol Use History: Yes Alcohol Use Frequency: Socially - Recreational Drug Use Recreational Drug Use: No - Living Situation & Occupation Living situation: Reports: , with Spouse Occupation: Employed (Teacher) ED ROS GENERAL - Review of Systems Review Of Systems: Comprehensive ROS is negative, except as noted in HPI. ED EXAM, GENERAL - Physical Exam Exam: See Below Exam Limited By: No Limitations General Appearance: Alert, WD/WN, No Apparent Distress Eye Exam: Bilateral Eye: EOMI, Normal Inspection Ears: Normal External Exam, Hearing Grossly Normal Nose: Normal Inspection Throat/Mouth: Normal Inspection, Normal Lips, Normal Voice, No Airway Compromise Head: Atraumatic, Normocephalic Neck: Normal Inspection, Full Range of Motion Respiratory/Chest: No Respiratory Distress, Lungs Clear, Normal Breath Sounds, No Accessory Muscle Use Cardiovascular: Normal Peripheral Pulses, Regular Rate, Rhythm, No Edema, No Gallop, No JVD, No Murmur, No Rub Peripheral Pulses: 4+: Radial (L), Radial (R) GI/Abdominal: Normal Bowel Sounds, Soft, Non-Tender, No Organomegaly, No Distention, No Abnormal Bruit, No Mass (Female) Exam: Deferred Rectal (Female) Exam: Deferred Back Exam: Normal Inspection, Full Range of Motion Extremities: Normal Inspection, Normal Range of Motion, No Pedal Edema, Normal Capillary Refill Neurological: Alert, Oriented, Normal Cognition, No Motor/Sensory Deficits Psychiatric: Normal Affect Skin Exam: Warm, Dry, Intact, Normal Color, No Rash EKG INTERPRETATION EKG Date: 08/22/19 Time: 21:04 Rhythm: Other (Sinus bradycardia) Rate (Beats/Min): 58 [place]: Normal P-Wave: Enlarged (?LAE?) QRS: Normal ST-T: Other (< [address] depression V3-V6, but no T-wave inversions) QT: Normal Comparison: No Change (08/20/2019) Course - Vital Signs Last Recorded V/S: Last Vital Signs Temp 36.2 C 08/22/19 20:13 Pulse 70 08/22/19 20:13 Resp 18 08/22/19 20:13 BP 156/80 H 08/22/19 20:13 Pulse Ox 99 08/22/19 20:13 - Orders/Labs/Meds Orders: Active Orders 24 hr Category Date Time Status EKG Documentation Completion [RC] STAT Care 08/22/19 20:44 Active Chest 2V [CR] Stat Exams 08/22/19 20:46 Taken Labs: Laboratory Tests 08/22/19 08/22/19 08/22/19 Range/Units 21:00 21:00 21:00 WBC 6.41 (3.98-10.04) K/mm3 RBC 4.61 (3.98-5.22) M/mm3 Hgb 14.2 (11.2-15.7) gm/dl Hct 42.6 (34.1-44.9) % MCV 92.4 (79.4-94.8) fl MCH 30.8 (25.6-32.2) pg MCHC 33.3 (32.2-35.5) g/dl RDW Std Deviation 44.7 (36.4-46.3) fL Plt Count 309 (182-369) K/mm3 MPV 10.8 (9.4-12.3) fl Neutrophils % (Manual) 62 H (40-60) % Band Neutrophils % 0 (0-10) % Lymphocytes % (Manual) 28 (20-40) % Atypical Lymphs % 0 % Monocytes % (Manual) 4 (2-10) % Eosinophils % (Manual) 4 (0.7-5.8) % Basophils % (Manual) 2 H (0.1-1.2) Platelet Estimate Adequate RBC Morph Comment Normal D-Dimer, Quantitative 0.21 (0.19-0.50) mg/L Sodium 143 (136-145) mEq/L Potassium 3.3 L (3.5-5.1) mEq/L Chloride 105 (98-107) mEq/L Carbon Dioxide 29 (21-32) mEq/L Anion Gap 12.3 (5-15) BUN 15 (7-18) mg/dL Creatinine 0.7 (0.55-1.02) mg/dL Est Cr Clr Drug Dosing 73.80 mL/min Estimated GFR (MDRD) > 60 (>60) mL/min BUN/Creatinine Ratio 21.4 H (14-18) Glucose 165 H (74-106) mg/dL Calcium 9.8 (8.5-10.1) mg/dL Magnesium 2.1 (1.8-2.4) mg/dl Ferritin (8-252) ng/ml Total Bilirubin 0.9 (0.2-1.0) mg/dL AST 22 (15-37) U/L ALT 60 H (14-59) U/L Alkaline Phosphatase 94 (46-116) U/L Lactate Dehydrogenase 170 (81-234) U/L Troponin I < 0.017 (0.00-0.056) ng/mL C-Reactive Protein 0.5 (<1.0) mg/dL NT-Pro-B Natriuret Pep (0-125) pg/mL Total Protein 8.1 (6.4-8.2) g/dl Albumin 4.2 (3.4-5.0) g/dl Globulin 3.9 gm/dL Albumin/Globulin Ratio 1.1 (1-2) 08/22/19 08/22/19 Range/Units 21:00 21:00 WBC (3.98-10.04) K/mm3 RBC (3.98-5.22) M/mm3 Hgb (11.2-15.7) gm/dl Hct (34.1-44.9) % MCV (79.4-94.8) fl MCH (25.6-32.2) pg MCHC (32.2-35.5) g/dl RDW Std Deviation (36.4-46.3) fL Plt Count (182-369) K/mm3 MPV (9.4-12.3) fl Neutrophils % (Manual) (40-60) % Band Neutrophils % (0-10) % Lymphocytes % (Manual) (20-40) % Atypical Lymphs % % Monocytes % (Manual) (2-10) % Eosinophils % (Manual) (0.7-5.8) % Basophils % (Manual) (0.1-1.2) Platelet Estimate RBC Morph Comment D-Dimer, Quantitative (0.19-0.50) mg/L Sodium (136-145) mEq/L Potassium (3.5-5.1) mEq/L Chloride (98-107) mEq/L Carbon Dioxide (21-32) mEq/L Anion Gap (5-15) BUN (7-18) mg/dL Creatinine (0.55-1.02) mg/dL Est Cr Clr Drug Dosing mL/min Estimated GFR (MDRD) (>60) mL/min BUN/Creatinine Ratio (14-18) Glucose (74-106) mg/dL Calcium (8.5-10.1) mg/dL Magnesium (1.8-2.4) mg/dl Ferritin 175 (8-252) ng/ml Total Bilirubin (0.2-1.0) mg/dL AST (15-37) U/L ALT (14-59) U/L Alkaline Phosphatase (46-116) U/L Lactate Dehydrogenase (81-234) U/L Troponin I (0.00-0.056) ng/mL C-Reactive Protein (<1.0) mg/dL NT-Pro-B Natriuret Pep 23 (0-125) pg/mL Total Protein (6.4-8.2) g/dl Albumin (3.4-5.0) g/dl Globulin gm/dL Albumin/Globulin Ratio (1-2) - Re-Assessments/Exams Free Text/Narrative Re-Assessment/Exam: 08/22/19 20:56 As above, the patient continues to have episodes of shaking chills and dyspnea, although no fever or cough. She is afebrile, saturating 99% on room air, and her physical exam is entirely unremarkable. The etiology of her symptoms is not immediately clear, but I have ordered some repeat blood work, chest x-ray, and ECG to see if anything comes up. 08/22/19 21:31 Two-view chest reviewed. There is mild malrotation to the left. The cardiac silhouette is within normal limits. No pulmonary vascular congestion. No pleural effusions. No focal infiltrate. No pneumothorax. There is thoracolumbar scoliosis. Formal read per the Radiologist pending. 08/22/19 22:05 The patient's CBC is unremarkable. Her CMP is remarkable for potassium slightly depressed at 3.3, and a blood glucose mildly elevated at 165. Her ALT is slightly elevated at 60, while her AST is normal at 22. The remainder of her CMP is unremarkable. Her magnesium level is normal at 2.1. Her troponin is undetectably low. Her BNP is normal at 23. Her D-dimer is within normal limits at 0.21. Her CRP is within normal limits at 0.5. Her LDH is normal at 170. Her ferritin is normal at 175. 08/22/19 22:14 Test results discussed with the patient. As above, the patient's blood glucose is mildly elevated at 165, otherwise, her work-up was unremarkable. Adjusted the following: To have her go to the [facility] clinic tomorrow, to see if she can get checked. She did not meet current criterion for testing in the ED, however , I am told that she may be able to go to the clinic to get checked. As above, her chest x-ray does not show bilateral infiltrates, and her CRP, LDH, and ferritin are all within normal limits, therefore it is highly unlikely that she has COVID-19 based on the testing abnormalities that we are aware of. Nevertheless, COVID-19 has shown that it presents in a variety of unusual manners, therefore I am recommending that she go to the Coumadin clinic tomorrow to see if she would qualify for testing, just to be sure. I am also recommending that she follow-up with her PCP to have a Hgb A1c checked. Departure - Departure Time of Disposition: 22:32 Disposition: Home, Self-Care 01 Condition: Good Clinical Impression: Dyspnea, Shaking chills, Hyperglycemia - Discharge Information *PRESCRIPTION DRUG MONITORING PROGRAM REVIEWED*: Not Applicable *COPY OF PRESCRIPTION DRUG MONITORING REPORT IN PATIENT MARLEE: Not Applicable Instructions: Shortness of Breath, Adult, [id number], Hyperglycemia, Easy-to- Read Referrals: Trudi Guan MD [Primary Care Provider] - Forms: ED Department Discharge Additional Instructions: You were seen in the emergency room for continued shaking chills and intermittent shortness of breath. Work-up in the ER included blood work (including blood work that is typically abnormal with COVID-19), a chest x-ray, and an ECG. Your work-up found your potassium to be slightly low at 3.3, and your blood glucose to be mildly elevated at 165. The remainder of your work-up was unremarkable. Based on your test results, we feel that it is highly unlikely that you are suffering from COVID-19, however, we recommend that you go to the COVID clinic tomorrow to see if you can be tested. We also recommend that you follow-up with your PCP, Dr. Trudi Sweeney, to have her run a test to check if you have prediabetes or actual diabetes. In the meantime, stay adequately hydrated and get plenty of rest. If any other problems, please do not hesitate to return to the ER. Sepsis Event Note - Evaluation Sepsis Screening Result: No Definite Risk - Focused Exam Vital Signs: Vital Signs Temp Pulse Resp BP Pulse Ox 08/22/19 20:13 36.2 C 70 18 156/80 H 99 Date Exam was Performed: 08/23/19 Time Exam was Performed: 01:38 - My Orders Last 24 Hours: My Active Orders 08/22/19 20:44 EKG Documentation Completion [RC] STAT 08/22/19 20:46 Chest 2V [CR] Stat - Assessment/Plan Last 24 Hours: My Active Orders 08/22/19 20:44 EKG Documentation Completion [RC] STAT 08/22/19 20:46 Chest 2V [CR] Stat
--- NOTE | 2019-08-23 08:31 | CR ---
Chest: 2 views of the chest were obtained. Comparison: Prior chest x-ray of 08/20/19. Heart size and mediastinum are normal. Lungs are clear with no acute parenchymal change. Scoliosis is noted within the spine. Slight degenerative change is scattered within the spine. Impression: 1. Nothing acute is appreciated on 2 view chest x-ray. Diagnostic code #2 This report was dictated in MDT
== END 2019-08-22 22:45 | disposition home or self-care (01) ==
LOC: JD.ED 19:47
DX: R06.00 Dyspnea, unspecified (principal); R25.1 Tremor, unspecified; R73.9 Hyperglycemia, unspecified; I10 Essential (primary) hypertension; E03.9 Hypothyroidism, unspecified; Z88.2 Allergy status to sulfonamides; Z79.82 Long term (current) use of aspirin; Z79.899 Other long term (current) drug therapy
CPT/HCPCS: 36415; 71046; 71046-26; 80053; 82728; 83615; 83735; 83880; 84484; 85007; 85027; 85379; 86140; 93005; 99283; 99285-25

== ENCOUNTER 2020-02-24 06:28 | Emergency (ER) | payer BC ==
[2020-02-24] MEDS ORDERED: Sodium Chloride 0.9% 10 ML Syringe FLUSH PRN (06:44)
[2020-02-24] MEDS ORDERED: Nitroglycerin 0.4 MG Tab.SL SL ONE (06:45)
--- NOTE | 2020-02-24 06:51 | EDM.PDOC ---
<YusrarichGiovannyEnrique - Last Filed: 02/24/20 07:10> ED HPI GENERAL MEDICAL PROBLEM - General Chief Complaint: Chest Pain Stated Complaint: CHEST PAIN/PRESSURE Time Seen by Provider: 02/24/20 06:39 Source of Information: Reports: Patient History Limitations: Reports: No Limitations - History of Present Illness INITIAL COMMENTS - FREE TEXT/NARRATIVE: The patient presents with chest pain. This started last night. She describes the pain as pressure and like something is squeezing her chest. She has never had this happen before. She has no history of heart disease She does have a family history of heart disease. She does not smoke. She has hypertension that is treated. She has no history of hypercholesterolemia or diabetes. She did take aspirin this morning. The pain is better now. She does not feel short of breath. Onset: Gradual Duration: Hour(s): Location: Reports: Chest Quality: Reports: Pressure Severity: Moderate Improves with: Reports: None Worsens with: Reports: None Associated Symptoms: Reports: Chest Pain. Denies: Cough, Fever/Chills, Headaches, Nausea/Vomiting, Shortness of Breath Treatments [employer]: Reports: Aspirin - Related Data Allergies Allergy/AdvReac Type Severity Reaction Status Date / Time Sulfa (Sulfonamide Allergy Hives Verified 02/24/20 06:36 Antibiotics) Home Meds: Home Meds Aspirin 81 mg PO DAILY 09/01/15 [History] Levothyroxine 50 mcg PO ACBREAKFAST 09/01/15 [History] Hydrochlorothiazide 25 mg PO DAILY 11/02/16 [History] amLODIPine [Norvasc] 5 mg PO DAILY 11/02/16 [History] Past Medical History HEENT History: Reports: Impaired Vision Cardiovascular History: Reports: Hypertension Gastrointestinal History: Reports: Bowel Obstruction 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: Musculoskeletal History: Reports: Back Pain, Chronic (scoliosis) Other Musculoskeletal History: Scoliosis Endocrine/Metabolic History: Reports: Hypothyroidism - Infectious Disease History Infectious Disease History: Reports: Chicken Pox, Measles, Mumps - Past Surgical History GI Surgical History: Reports: Appendectomy, Lysis of Adhesions (x 2, by laparotomy) Social & Family History - Family History Family Medical History: Noncontributory - Caffeine Use Caffeine Use: Reports: Tea - Living Situation & Occupation Living situation: Reports: , with Spouse Occupation: Employed (Teacher) ED ROS GENERAL - Review of Systems Review Of Systems: See Below Constitutional: Reports: No Symptoms HEENT: Reports: No Symptoms Respiratory: Reports: No Symptoms Cardiovascular: Reports: Chest Pain Endocrine: Reports: No Symptoms GI/Abdominal: Reports: No Symptoms : Reports: No Symptoms Musculoskeletal: Reports: No Symptoms ED EXAM, GENERAL - Physical Exam Exam: See Below Exam Limited By: No Limitations General Appearance: Alert, No Apparent Distress Ears: Normal External Exam Nose: Normal Inspection Head: Atraumatic, Normocephalic Neck: Normal Inspection Respiratory/Chest: No Respiratory Distress, Lungs Clear, Normal Breath Sounds Cardiovascular: Regular Rate, Rhythm, No Edema, No Murmur GI/Abdominal: Soft, Non-Tender, No Organomegaly, No Mass Back Exam: Normal Inspection Extremities: Normal Inspection EKG INTERPRETATION EKG Date: 02/24/20 Time: 06:34 Rhythm: NSR Rate (Beats/Min): 73 Bradley: Normal P-Wave: Present QRS: Normal ST-T: Depressed (in leads I, II, aVF, V3, V4, V5 and V6) Course - Re-Assessments/Exams Free Text/Narrative Re-Assessment/Exam: 02/24/20 06:50 I ordered an IV saline lock, EKG, CXR, labs and a sublingual nitro. Her EKG shows a NSR with ST depression in the lateral and inferior leads. Some of those changes were seen on a prior EKG this past year. It is change of shift. Dr Galeas to take over. Departure - Departure Disposition: Home, Self-Care 01 Clinical Impression: Upper abdominal pain of unknown etiology Instructions: Abdominal Pain, Adult, [id number] Referrals: Trudi Guan MD [Primary Care Provider] - Forms: ED Department Discharge Additional Instructions: You were seen in the emergency room after experiencing about 1 week of upper abdominal discomfort in a bandlike distribution. Work-up in the ER included blood work, a chest x-ray, a CT of your abdomen and pelvis with oral and IV contrast, and an ECG. Your entire work-up was unremarkable, and does not explain the cause of your symptoms. Based on your history, physical exam, and ER tests, we suspect that your pain is gastroenterologic in etiology. You have been started on the antacid famotidine (Pepcid). Generic famotidine is available [id number], and is just as good as brand-name Pepcid. We recommend that you take 1 tablet of famotidine either once or twice a day. We recommend that you follow-up with your PCP, Dr. Trudi Little, to arrange for an outpatient EGD (scope of the stomach). If any other problems, please do not hesitate to return to the ER. Sepsis Event Note (ED) - Evaluation Sepsis Screening Result: No Definite Risk <Louis Galeas - Last Filed: 02/24/20 14:51> Course - Vital Signs Last Recorded V/S: Last Vital Signs Temp 36.2 C 02/24/20 06:36 Pulse 78 02/24/20 10:40 Resp 16 02/24/20 10:40 BP 129/74 02/24/20 10:40 Pulse Ox 97 02/24/20 10:40 - Orders/Labs/Meds Orders: Active Orders 24 hr Category Date Time Status Abdomen Pelvis w Cont [CT] Stat Exams 02/24/20 07:27 Taken Chest 1V Frontal [CR] Stat Exams 02/24/20 07:12 Taken Peripheral IV Insertion Adult [OM.PC] Stat Oth 02/24/20 06:44 Ordered Labs: Laboratory Tests 02/24/20 02/24/20 Range/Units 06:31 06:54 WBC 6.77 (3.98-10.04) K/mm3 RBC 4.82 (3.98-5.22) M/mm3 Hgb 14.7 (11.2-15.7) gm/dl Hct 43.9 (34.1-44.9) % MCV 91.1 (79.4-94.8) fl MCH 30.5 (25.6-32.2) pg MCHC 33.5 (32.2-35.5) g/dl RDW Std Deviation 44.0 (36.4-46.3) fL Plt Count 314 (182-369) K/mm3 MPV 10.8 (9.4-12.3) fl Neut % (Auto) 69.5 (34.0-71.1) % Lymph % (Auto) 22.7 (19.3-51.7) % Roane % (Auto) 5.5 (4.7-12.5) % Eos % (Auto) 1.3 (0.7-5.8) Baso % (Auto) 0.9 (0.1-1.2) % Neut # (Auto) 4.70 (1.56-6.13) K/mm3 Lymph # (Auto) 1.54 (1.18-3.74) K/mm3 Ro[place] # (Auto) 0.37 H (0.24-0.36) K/mm3 Eos # (Auto) 0.09 (0.04-0.36) K/mm3 Baso # (Auto) 0.06 (0.01-0.08) K/mm3 Sodium 140 (136-145) mEq/L Potassium 3.7 (3.5-5.1) mEq/L Chloride 102 (98-107) mEq/L Carbon Dioxide 25 (21-32) mEq/L Anion Gap 16.7 H (5-15) BUN 15 (7-18) mg/dL Creatinine 0.7 (0.55-1.02) mg/dL Est Cr Clr Drug Dosing 70.70 mL/min Estimated GFR (MDRD) > 60 (>60) mL/min BUN/Creatinine Ratio 21.4 H (14-18) Glucose 127 H (74-106) mg/dL Calcium 9.6 (8.5-10.1) mg/dL Total Bilirubin 1.0 (0.2-1.0) mg/dL AST 24 (15-37) U/L ALT 56 (14-59) U/L Alkaline Phosphatase 82 (46-116) U/L Troponin I < 0.017 (0.00-0.056) ng/mL Total Protein 8.4 H (6.4-8.2) g/dl Albumin 4.4 (3.4-5.0) g/dl Globulin 4.0 gm/dL Albumin/Globulin Ratio 1.1 (1-2) Meds: Medications Discontinued Medications Generic Name Dose Route Start Last Admin Trade Name Freq PRN Reason Stop Dose Admin Diatrizoate Meglum/Diatrizoate Sod 90 ml 02/24/20 08:43 02/24/20 09:07 Gastrografin 37% PO 02/24/20 08:44 90 ml ONETIME ONE Administration Famotidine 40 mg 02/24/20 10:35 02/24/20 10:49 Pepcid PO 02/24/20 10:36 Not Given ONETIME STA Sodium Chloride 1,000 mls @ 150 mls/hr 02/24/20 07:30 02/24/20 07:39 Normal Saline IV 150 mls/hr ASDIRECTED ANDREA Administration Sodium Chloride 100 mls @ 4 mls/sec 02/24/20 08:43 Normal Saline IV 02/24/20 08:44 ONETIME ONE Iopamidol 100 ml 02/24/20 08:43 02/24/20 09:08 Isovue-300 (61%) IVPUSH 02/24/20 08:44 100 ml ONETIME ONE Administration Nitroglycerin 0.4 mg 02/24/20 06:45 02/24/20 06:56 Nitrostat SL 02/24/20 06:46 0.4 mg ONETIME ONE Administration Sodium Chloride 10 ml 02/24/20 06:44 02/24/20 06:57 Saline Flush FLUSH 10 ml ASDIRECTED PRN Administration Keep Vein Open - Re-Assessments/Exams Free Text/Narrative Re-Assessment/Exam: 02/24/20 07:28 Care of the patient assumed from Dr. Ibarra. I have interviewed and examined the patient. She tells me that she has had this bandlike squeezing discomfort around her upper abdomen for about a week, but that it got a little worse last night, plus her concern that it has been going on for so long, which prompted her to come to the ED this morning. She states that it comes and goes, typically lasting a few minutes, recurring about every 10 minutes, and she states that the discomfort is made worse if she is supine, or, worse still, she is sitting, but it resolves if she is upright or active. For example, she states that she will often wake with the discomfort, but then get up and walk her dog, during which time it will resolve. She does not have much discomfort during the day, because she is upright and doing things. She states that she took 2 aspirin around midnight last night, that did not help. Further, she was given a sublingual nitroglycerin about 15 minutes ago, and she states that other than causing her to feel lightheaded, it did not alter the discomfort, either. On examination, while she has some epigastric tenderness, she states that the discomfort with palpation is different than the discomfort that brings her in, and there is nothing that I could do to reproduce the discomfort that she has been experiencing for the past week. While her ECG shows some concerning- appearing ST depressions in the lateral leads and in lead II, review of her prio r ECG dated 08/22/[address] depressions. The patient's CBC is unremarkable. Her CMP is remarkable for an anion gap slightly elevated at 16.7, but with a bicarbonate normal at 25. Her blood glucose is slightly elevated at 127, with the remainder of her CMP being unremarkable. Her troponin is undetectably low. Portable chest radiograph reviewed. The cardiac silhouette is within normal limits. No pulmonary vascular congestion. No pleural effusions seen on this AP view. No focal infiltrate. No pneumothorax. Thoracolumbar scoliosis noted. Formal read per the Radiologist pending. On the above, it does not appear that the patient's discomfort is cardiac in etiology. I suspect that it is intra-abdominal, and although I do not suspect an intra-abdominal emergency, I believe it would be prudent to perform a CT of her abdomen and pelvis with oral and IV contrast just to be sure. The patient will be given IV fluid. 02/24/20 10:26 CT of the abdomen and pelvis with oral and IV contrast is read by [facility] as "No acute abnormality identified. Nonemergent findings similar to 12/02/16." 02/24/20 10:35 CT results discussed with the patient. As above, today's work-up, including the CT scan are unremarkable and do not explain the cause of her upper abdominal discomfort. I believe that her symptoms are gastrointestinal in etiology. For today's purposes, I will start the patient on famotidine, and I recommended that she take 1 tablet either once or twice a day. I would also like her to follow- up with her PCP, Dr. Little, to arrange for an outpatient EGD to evaluate for such etiology as an ulcer. Departure - Departure Time of Disposition: 10:37 Condition: Good Sepsis Event Note (ED) - Focused Exam Vital Signs: Vital Signs Temp Pulse Resp BP BP Pulse Ox 02/24/20 10:40 78 16 129/74 97 02/24/20 06:56 133/69 02/24/20 06:36 36.2 C 80 16 157/79 H 98 - My Orders Last 24 Hours: My Active Orders 02/24/20 07:27 Abdomen Pelvis w Cont [CT] Stat - Assessment/Plan Last 24 Hours: My Active Orders 02/24/20 07:27 Abdomen Pelvis w Cont [CT] Stat
[2020-02-24] MEDS ORDERED: Sodium Chloride 0.9% 1,000 ML IV SCH (07:30)
[2020-02-24] MEDS ORDERED: Diatrizoate Meglumine/Diatrizoate Sodium 37% 120 ML Bottle PO ONE (08:43)
[2020-02-24] MEDS ORDERED: Sodium Chloride 0.9% 100 ML IV ONE (08:43)
[2020-02-24] MEDS ORDERED: Iopamidol 612 MG/ML 100 ML Bottle IVPUSH ONE (08:43)
[2020-02-24] MEDS ORDERED: Famotidine 20 MG Tab PO STA (10:35)
[2020-02-24 10:48] VITALS: BP 129/74; PULSE 78
== END 2020-02-24 10:45 | disposition home or self-care (01) ==
LOC: JD.ED 06:28
DX: R10.13 Epigastric pain (principal); I10 Essential (primary) hypertension; M41.9 Scoliosis, unspecified; E03.9 Hypothyroidism, unspecified; Z79.899 Other long term (current) drug therapy; Z88.2 Allergy status to sulfonamides; Z79.82 Long term (current) use of aspirin
CPT/HCPCS: 36415; 71045; 74177; 80053; 84484; 85025; 93005; 96360; 96361; 99285; A9270; J7030; Q9963; Q9967

== ENCOUNTER 2022-10-05 20:59 | Emergency (ER) | payer BC ==
[2022-10-06 00:47] LABS: HEMATOCRIT 39.4 % (34.1-44.9); HEMOGLOBIN 13.2 gm/dl (11.2-15.7); MEAN CORPUSCULAR HEMOGLOBIN 31.3 pg (25.6-32.2); MEAN CORPUSCULAR HGB CONC 33.5 g/dl (32.2-35.5); MEAN CORPUSCULAR VOLUME 93.4 fl (79.4-94.8); MEAN PLATELET VOLUME 10.9 fl (9.4-12.3); PLATELET COUNT,PLT 252 K/mm3 (182-369); RED BLOOD CELL COUNT 4.22 M/mm3 (3.98-5.22); WHITE BLOOD CELL COUNT,WBC 5.93 K/mm3 (3.98-10.04)
[2022-10-06 01:03] LABS: INR 0.97; PROTHROMBIN TIME 10.4 SECONDS (9.7-12.0)
[2022-10-06 01:04] LABS: PTT,PARTIAL THROMBOPLSTIN TIME 26.7 SECONDS (21.7-31.4)
[2022-10-06 01:23] LABS: A/G RATIO 1.2 (1-2); ALBUMIN 4.1 g/dl (3.4-5.0); ANION GAP 10.6 (5-15); BILIRUBIN TOTAL 0.9 mg/dL (0.2-1.0); BUN/CREATININE RATIO 21.3 (14-18); CALCIUM 9.5 mg/dL (8.5-10.1); CREATININE 0.8 mg/dL (0.55-1.02); EST CRCL DRUG DOSING (CG) 62.15 mL/min; MAGNESIUM 2.3 mg/dL (1.8-2.4); POTASSIUM,K 3.6 mEq/L (3.5-5.1); PROTEIN TOTAL,TP 7.6 g/dl (6.4-8.2)
[2022-10-06 01:37] LABS: BAND PERCENT MAN 0 % (0-10); BASOPHILS PERCENT MAN 1 (0.1-1.2); EOSINOPHILS PERCENT MAN 4 % (0.7-5.8); LYMPHOCYTES % ATYPICAL MANUAL 0 %; LYMPHOCYTES PERCENT MAN 21 % (20-40); MONOCYTES PERCENT MAN 7 % (2-10)
[2022-10-06 01:39] LABS: PLATELET COUNT ESTIMATE ADEQUATE
[2022-10-06 02:34] VITALS: BP 103/48; PULSE 60
== END 2022-10-06 02:34 | disposition home or self-care (01) ==
LOC: JD.ED 20:59
DX: M79.661 Pain in right lower leg (principal); M79.662 Pain in left lower leg; I10 Essential (primary) hypertension; E03.9 Hypothyroidism, unspecified; Z79.82 Long term (current) use of aspirin; Z79.899 Other long term (current) drug therapy; Z88.2 Allergy status to sulfonamides
CPT/HCPCS: 36415; 80053; 83735; 85007; 85027; 85610; 85730; 93970; 93970-26; 99284

== ENCOUNTER 2022-10-08 23:15 | Emergency (ER) | payer BC ==
[2022-10-08] MEDS ORDERED: Sodium Chloride 0.9% 10 ML Syringe FLUSH PRN (23:29)
[2022-10-08] MEDS ORDERED: Ondansetron 4 MG/2 ML SDV IVPUSH ONE (23:29)
[2022-10-08] MEDS ORDERED: Sodium Chloride 0.9% 1,000 ML IV SCH (23:30)
[2022-10-08 23:31] VITALS: PULSE 64
[2022-10-08 23:36] LABS: BASOPHILS ABSOLUTE AUTO 0.04 K/mm3 (0.01-0.08); BASOPHILS PERCENT AUTO 0.7 % (0.1-1.2); EOSINOPHILS ABSOLUTE AUTO 0.18 K/mm3 (0.04-0.36); EOSINOPHILS PERCENT AUTO 3.1 (0.7-5.8); HEMATOCRIT 40.6 % (34.1-44.9); HEMOGLOBIN 13.7 gm/dl (11.2-15.7); IMMATURE GRAN ABSOLUTE AUTO 0.01 K/mm3 (0.00-0.10); IMMATURE GRAN PERCENT AUTO 0.2 % (<=1.0); LYMPHOCYTES ABSOLUTE AUTO 1.89 K/mm3 (1.18-3.74); LYMPHOCYTES PERCENT AUTO 32.7 % (19.3-51.7); MEAN CORPUSCULAR HEMOGLOBIN 31.4 pg (25.6-32.2); MEAN CORPUSCULAR HGB CONC 33.7 g/dl (32.2-35.5); MEAN CORPUSCULAR VOLUME 92.9 fl (79.4-94.8); MONOCYTES ABSOLUTE AUTO 0.51 K/mm3 (0.24-0.36); MONOCYTES PERCENT AUTO 8.8 % (4.7-12.5); NEUTROPHILS ABSOLUTE AUTO 3.15 K/mm3 (1.56-6.13); NEUTROPHILS PERCENT AUTO 54.5 % (34.0-71.1); PLATELET COUNT,PLT 287 K/mm3 (182-369); RED BLOOD CELL COUNT 4.37 M/mm3 (3.98-5.22); WHITE BLOOD CELL COUNT,WBC 5.78 K/mm3 (3.98-10.04)
[2022-10-08 23:53] LABS: A/G RATIO 1.1 (1-2); ALANINE AMINOTRANSFERASE,ALT 69 U/L (14-59); ALBUMIN 4.4 g/dl (3.4-5.0); ALKALINE PHOSPHATASE 99 U/L (46-116); ANION GAP 14.7 (5-15); ASPARTATE AMNIOTRANSFERASE,AST 36 U/L (15-37); BILIRUBIN TOTAL 0.9 mg/dL (0.2-1.0); BLOOD UREA NITROGEN,BUN 17 mg/dL (7-18); BUN/CREATININE RATIO 21.3 (14-18); C-REACTIVE PROTEIN <0.2 mg/dL (<1.0); CARBON DIOXIDE,CO2 28 mEq/L (21-32); CHLORIDE,CL 102 mEq/L (98-107); CREATININE 0.8 mg/dL (0.55-1.02); EST CRCL DRUG DOSING (CG) 69.99 mL/min; ESTIMATED GFR 83 mL/min (>60); GLUCOSE RANDOM 105 mg/dL (70-99); LIPASE 138 U/L (73-393); MAGNESIUM 2.1 mg/dL (1.8-2.4); POTASSIUM,K 3.7 mEq/L (3.5-5.1); PROTEIN TOTAL,TP 8.3 g/dl (6.4-8.2); SODIUM,NA 141 mEq/L (136-145)
[2022-10-09] MEDS ORDERED: LORazepam 2 MG/ML SDV IVPUSH ONE (00:26)
[2022-10-09] MEDS ORDERED: Aspirin 81 MG Tab.Chew PO ONE (00:27)
[2022-10-09] MEDS ORDERED: Nitroglycerin 0.4 MG Tab.SL SL ONE (00:28)
[2022-10-09] MEDS ORDERED: Sucralfate Suspension 1 GM/10 ML Cup PO ONE (00:31)
[2022-10-09 00:47] VITALS: BP 145/65
[2022-10-09] MEDS ORDERED: Sodium Chloride 0.9% 250 ML IV ONE (01:12)
[2022-10-09] MEDS ORDERED: Famotidine 20 MG Tab PO ONE (04:31)
== END 2022-10-09 05:24 | disposition home or self-care (01) ==
LOC: JD.ED 23:15
DX: R10.13 Epigastric pain (principal); I10 Essential (primary) hypertension; E03.9 Hypothyroidism, unspecified; Z88.2 Allergy status to sulfonamides; Z79.82 Long term (current) use of aspirin; Z79.899 Other long term (current) drug therapy; Z90.49 Acquired absence of other specified parts of digestive tract
CPT/HCPCS: 36415; 71045; 80053; 83690; 83735; 84484; 85025; 85379; 86140; 93005; 96374; 99285; A9270; J2060; J3490; J7030